=== PATIENT | female | born 1975 | race Caucasian/White ===

== ENCOUNTER 2019-04-11 19:46 | Emergency (ER) | payer SELFPAY ==
[2019-04-11 19:56] VITALS: BP 168/103; PULSE 110; RESP 15; TEMP 36.3; O2SAT 96; BMI 13.7
--- NOTE | 2019-04-11 19:59 | DI.RAD.S_ITS ---
PROCEDURE: XR WRIST LT MIN 3V INDICATIONS: left wrist pain after fall yesterday TECHNIQUE: 3 views of the wrist were acquired. COMPARISON: None. FINDINGS: Bones: No fractures or dislocations. No suspicious bony lesions. Soft tissues: No suspicious soft tissue calcifications. IMPRESSION: No evidence acute bony abnormality of the left wrist. If clinical suspicion and/or symptoms persist, further assessment with repeat plain films, or advanced imaging (e.g., CT, MRI, or bone scan) may be helpful for further assessment. Dictated by: Rc Peraza M.D. on 04/11/2019 at 20:46 Approved by: Rc Peraza M.D. on 04/11/2019 at 20:46
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
[2019-04-11 21:25] VITALS: BP 150/99; PULSE 68; O2SAT 100
== END 2019-04-11 21:26 | disposition home or self-care (01) ==
PROVIDERS: Emergency Provider Nurse Practitioner; Family Provider Family Medicine; PCP Family Medicine
DX: S63.502A Unspecified sprain of left wrist, initial encounter (principal); S66.912A Strain of unspecified muscle, fascia and tendon at wrist and hand level, left hand, initial encounter; W19.XXXA Unspecified fall, initial encounter
CPT/HCPCS: 73110; 99283

== ENCOUNTER 2020-04-24 07:04 | Emergency (ER) | payer OTHER, MEDICAID, SELFPAY ==
[2020-04-24 07:14] VITALS: BP 157/115; PULSE 110; RESP 22; TEMP 36.4; O2SAT 96; BMI 13.7
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
[2020-04-24 07:45] LABS: Add Manual Diff / Slide Review NO; Basophils Absolute Auto 100 /uL (0-100); Basophils Percent Auto 0.9 % (0-2); Eosinophils Absolute Auto 100 /uL (0-450); Eosinophils Percent Auto 1.3 % (2-4); Hematocrit 45.4 % (36-46); Hemoglobin 15.5 g/dL (12.0-16.0); Lymphocytes Absolute Auto 2600 /uL (1100-4500); Lymphocytes Percent Auto 32.6 % (25-40); Mean Corpuscular HGB Conc 34.3 % (30-36); Mean Corpuscular Hemoglobin 37.7 PG (26-34); Mean Corpuscular Volume 110.1 fL (80-100); Monocytes Absolute Auto 1000 /uL (0-900); Monocytes Percent Auto 12.8 % (3-14); Neutrophils Absolute Auto 4100 /uL (1500-7000); Neutrophils Percent Auto 52.4 % (50-75); Platelet Count 145 X10^3/uL (150-400); Red Blood Cell Count 4.12 X10^6/uL (4.0-5.2); Red Cell Distribution Width 13.2 % (11.6-14.8); White Blood Cell Count 7.9 X10^3/uL (4.5-11.0)
[2020-04-24 07:49] LABS: Alanine Aminotransferase 30 IU/L (<35); Albumin 4.7 g/dL (3.5-5.0); Albumin Globulin Ratio 1.4 (1.0-2.8); Alkaline Phosphatase 74 U/L (38-126); Aspartate Aminotransferase 77 IU/L (14-36); BUN Creatinine Ratio 11.1 (6-22); Bilirubin Total 0.3 mg/dL (0.2-1.3); Blood Urea Nitrogen 5 mg/dL (7-17); Calcium 9.5 mg/dL (8.4-10.2); Carbon Dioxide 29 mmol/L (22-32); Chloride 104 mmol/L (98-107); Estimated Glomerular Filt Rate > 60.0 mL/min (>60); Globulin 3.3 g/dL (1.7-4.1); Glucose 127 mg/dL (70-100); HEMOLYSIS 15 (0-50); Potassium 3.7 mmol/L (3.4-5.1); Sodium 142 mmol/L (137-145)
[2020-04-24 07:55] LABS: Bacteria Urine None Seen; RBC Urine None Seen (0-5/HPF); WBC Urine None Seen (0-5/HPF)
[2020-04-24] MEDS: KETOROLAC 60 MG/2 ML VIAL 30 MG IM (08:05)
[2020-04-24 08:06] LABS: Appearance Urine UA CLEAR; Bilirubin Urine UA NEGATIVE (NEGATIVE); Color Urine UA YELLOW; Glucose Urine UA TRACE g/dL (Negative); Ketones Urine UA NEGATIVE (NEGATIVE); Leukocyte Esterase Urine UA NEGATIVE (NEGATIVE); Nitrite Urine UA NEGATIVE (Negative); Occult Blood Urine UA NEGATIVE (Negative); Protein Urine UA NEGATIVE (Negative); Specific Gravity Urine UA <=1.005 (1.000-1.035); Urobilinogen Urine UA 0.2 E.U./dL (0.2)
[2020-04-24 08:11] LABS: Culture Indicated Urine Cult Not Indicated; Squamous Epithelial Cell Urine 0-1 /HPF (0-5/HPF); Urine Comments Microscopic Normal; pH Urine UA 6.5 (4.5-8.0)
[2020-04-24 09:00] LABS: Anisocytosis 1+; Macrocytosis 2+
[2020-04-26 01:36] LABS: Chlamydia trachomatis NAA Negative (Negative); Neisseria gonorrhoeae NAA Negative (Negative)
== END 2020-04-24 08:36 | disposition home or self-care (01) ==
PROVIDERS: Emergency Provider Emergency Medicine
DX: R10.2 Pelvic and perineal pain (principal); N76.0 Acute vaginitis; Z97.5 Presence of (intrauterine) contraceptive device
CPT/HCPCS: 72170; 80053; 81001; 81025; 85025; 87210; 87491; 87591; 96372; 99281; 99284; J1885

== ENCOUNTER → 2020-12-07 11:23 | Outpatient (CLI) | payer OTHER, MEDICAID, SELFPAY ==
[2020-12-07 13:00] LABS: Hemoglobin A1C% w Est Avg Glu 4.6 % (4.0-6.0)
[2020-12-07 13:01] LABS: Add Manual Diff / Slide Review NO; Basophils Absolute Auto 0 /uL (0-100); Basophils Percent Auto 0.5 % (0-2); Eosinophils Absolute Auto 100 /uL (0-450); Eosinophils Percent Auto 1.4 % (2-4); Hematocrit 43.8 % (36-46); Hemoglobin 14.5 g/dL (12.0-16.0); Lymphocytes Absolute Auto 2100 /uL (1100-4500); Lymphocytes Percent Auto 40.8 % (25-40); Mean Corpuscular HGB Conc 33.1 % (30-36); Mean Corpuscular Hemoglobin 37.6 PG (26-34); Mean Corpuscular Volume 113.5 fL (80-100); Monocytes Absolute Auto 800 /uL (0-900); Monocytes Percent Auto 16.4 % (3-14); Neutrophils Absolute Auto 2100 /uL (1500-7000); Neutrophils Percent Auto 40.9 % (50-75); Platelet Count 242 X10^3/uL (150-400); Red Blood Cell Count 3.85 X10^6/uL (4.0-5.2); Red Cell Distribution Width 12.4 % (11.6-14.8); White Blood Cell Count 5.2 X10^3/uL (4.5-11.0)
[2020-12-07 13:19] LABS: Alanine Aminotransferase 28 IU/L (<35); Albumin 4.4 g/dL (3.5-5.0); Albumin Globulin Ratio 1.5 (1.0-2.8); Alkaline Phosphatase 66 U/L (38-126); Amylase 66 U/L (30-110); Aspartate Aminotransferase 60 IU/L (14-36); BUN Creatinine Ratio 10.9 (6-22); Bilirubin Total 0.3 mg/dL (0.2-1.3); Blood Urea Nitrogen 5 mg/dL (7-17); Calcium 9.6 mg/dL (8.4-10.2); Carbon Dioxide 34 mmol/L (22-32); Chloride 98 mmol/L (98-107); Cholesterol 173 mg/dL (140-199); Estimated Glomerular Filt Rate > 60.0 mL/min (>60); Glucose 101 mg/dL (70-100); HEMOLYSIS < 15 (0-50); Lipase 158 U/L (23-300); Potassium 4.2 mmol/L (3.4-5.1); Sodium 141 mmol/L (137-145); Total Protein 7.4 g/dL (6.3-8.2); Triglycerides 83 mg/dL (35-150)
[2020-12-07 13:26] LABS: Macrocytosis 3+
[2020-12-07 13:28] LABS: HDL Cholesterol 121 mg/dL (40-60); LDL Cholesterol Calculated 35 mg/dL (<100)
[2020-12-07 13:40] LABS: TSH w/ Reflex to FT4 1.18 uIU/mL (0.47-4.68)
[2020-12-07 14:19] LABS: Vitamin B12 518 pg/mL (239-931)
== END ==
PROVIDERS: PCP Registered Nurse Diabetes Educator; Referring Provider Registered Nurse Diabetes Educator; Visit Provider Registered Nurse Diabetes Educator
DX: D75.89 Other specified diseases of blood and blood-forming organs (principal); Q45.3 Other congenital malformations of pancreas and pancreatic duct; R73.9 Hyperglycemia, unspecified; R79.89 Other specified abnormal findings of blood chemistry
CPT/HCPCS: 36415; 80053; 80061; 82150; 82607; 82746; 83036; 83690; 84443; 85025

== ENCOUNTER 2020-12-16 09:37 | Emergency (ER) | payer OTHER, MEDICAID, SELFPAY ==
[2020-12-16 09:45] VITALS: BP 115/74; PULSE 78; RESP 14; TEMP 36.9; O2SAT 98; BMI 15.1
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
== END 2020-12-16 10:30 | disposition home or self-care (01) ==
PROVIDERS: Emergency Provider Emergency Medicine; PCP Registered Nurse Diabetes Educator
DX: S40.021A Contusion of right upper arm, initial encounter (principal); X58.XXXA Exposure to other specified factors, initial encounter
CPT/HCPCS: 99281

== ENCOUNTER 2021-05-08 04:54 | Emergency (ER) | payer OTHER, MEDICAID, SELFPAY ==
[2021-05-08 05:04] VITALS: BP 145/101; PULSE 105; RESP 20; TEMP 36.3; O2SAT 95; BMI 15.9
--- NOTE | 2021-05-08 05:04 | ED.GENADULT ---
HPI - General Adult General Chief complaint: Upper Respiratory Symptoms Stated complaint: SOB, bodyaches, weakness thinks maybe covid Time Seen by Provider: 05/08/21 04:58 Source: patient Mode of arrival: Ambulatory Limitations: no limitations History of Present Illness HPI narrative: Patient is a 46-year-old female who is here for evaluation of approximately 1 week of cough and shortness of breath and body aches and nausea and diarrhea and abdominal pain. She states she has similar symptoms approximately 1 month ago with who went away on their own. Has not tried anything for the symptoms. She is concerned that maybe she has COVID. Related Data Home Medications Medication Instructions Recorded Confirmed copper 380 square mm intrauterine INTRAUTERINE 09/27/20 09/27/20 device (ParaGard T 380A) Allergies Allergy/AdvReac Type Severity Reaction Status Date / Time No Known Drug Allergies Allergy Verified 12/16/20 09:49 Review of Systems Constitutional Constitutional: Reports body ache(s) and Reports fatigue Cardiovascular Cardiovascular: Denies chest pain and Reports dyspnea Respiratory Respiratory: Reports cough and Reports dyspnea Gastrointestinal Gastrointestinal: Reports as per HPI and Reports system reviewed and no additional complaints, except as documented Genitourinary Genitourinary: Denies dysuria Musculoskeletal Musculoskeletal: Reports system reviewed and no additional complaints, except as documented Integumentary/Breasts Skin/Breast: Reports system reviewed and no additional complaints, except as documented Endocrine Endocrine: Reports fatigue Hematologic/Lymphatic On Anticoagulants: No Patient History Medical History Chicken pox Current smoker Excessive drinking of alcohol Marijuana smoker Surgical History Anesthesia History of surgery Status post hernia repair Status post loop electrosurgical excision procedure (LEEP) of cervix Family History Mother Seizures Grandmother Stroke Social History Smoking Status: Current every day smoker Tobacco: How many years used: 27 quit status: not considering quitting alcohol intake: current (2-24oz per day ) substance use type: marijuana (Daily ) Smoking Status: Current every day smoker alcohol intake frequency: 3 or more drinks per day Alcohol type: beer, wine and hard liquor Substance Use Type: marijuana Exam Initial Vital Signs Initial Vital Signs: Vital Signs Temperature 97.3 F L 05/08/21 05:04 Pulse Rate 105 H 05/08/21 05:04 Respiratory Rate 20 05/08/21 05:04 Blood Pressure 145/101 H 05/08/21 05:04 Pulse Oximetry 95 05/08/21 05:04 Const General: cooperative Resp Effort & Inspection: normal respiratory effort Auscultation: clear to auscultation bilaterally Cardio Rate: regular rate Rhythm: regular rhythm GI Inspection: normal to inspection Palpation: soft, No guarding and No tender Skin General: no rashes or lesions noted Neuro General: patient alert, patient awake and moves all extremities Extrem General: normal to inspection and capillary refill normal Psych Appearance: grossly normal and well kempt Course Orders Ordered: ED Orders 05/08/21 05:00 COVID19 -Nasal swab/Pre-Proc Stat 05/08/21 05:10 Complete Blood Count AUTO DIFF Stat Comprehensive Metabolic Panel Stat Lipase Stat Test Serum,Qual Stat Vital Signs Vital signs: Vital Signs - 8 hr 05/08/21 05:04 Temperature 97.3 F L Pulse Rate 105 H Respiratory Rate 20 Blood Pressure 145/101 H Pulse Oximetry 95 Medical Decision Making Lab Data Lab results reviewed: Yes I reviewed the patient's lab results. Result diagrams: 05/08/21 05:10 05/08/21 05:10 Labs: Lab Results 05/08/21 05/08/21 05/08/21 Range/Units 05:00 05:10 05:10 WBC 6.4 (4.5-11.0) X10^3/uL RBC 4.19 (4.0-5.2) X10^6/uL Hgb 15.5 (12.0-16.0) g/dL Hct 45.5 (36-46) % MCV 108.6 H (80-100) fL MCH 37.0 H (26-34) PG MCHC 34.1 (30-36) % RDW 12.6 (11.6-14.8) % Plt Count 208 (150-400) X10^3/uL Neut % (Auto) 32.6 L (50-75) % Lymph % (Auto) 57.5 H (25-40) % [place] % (Auto) 7.9 (3-14) % Eos % (Auto) 1.3 L (2-4) % Baso % (Auto) 0.7 (0-2) % Neut # (Auto) 2100 (2099-6821) /uL Lymph # (Auto) 3700 (6389-2681) /uL [place] # (Auto) 500 (0-900) /uL Eos # (Auto) 100 (0-450) /uL Baso # (Auto) 0 (0-100) /uL Sodium 144 (137-145) mmol/L Potassium 3.8 (3.4-5.1) mmol/L Chloride 104 (98-107) mmol/L Carbon Dioxide 31 (22-32) mmol/L BUN 4 L (7-17) mg/dL Creatinine 0.49 L (0.52-1.04) mg/dL Estimated GFR > 60.0 (>60) mL/min BUN/Creatinine Ratio 8.2 (6-22) Glucose 100 (70-100) mg/dL Calcium 8.6 (8.4-10.2) mg/dL Total Bilirubin 0.3 (0.2-1.3) mg/dL AST 51 H (14-36) IU/L ALT 19 (<35) IU/L Alkaline Phosphatase 87 (38-126) U/L Total Protein 8.1 (6.3-8.2) g/dL Albumin 4.3 (3.5-5.0) g/dL Globulin 3.8 (1.7-4.1) g/dL Albumin/Globulin Ratio 1.1 (1.0-2.8) Lipase 184 (23-300) U/L Serum , Qual (Negative) SARS-CoV-2 (PCR) Negative (Negative) 05/08/21 Range/Units 05:10 WBC (4.5-11.0) X10^3/uL RBC (4.0-5.2) X10^6/uL Hgb (12.0-16.0) g/dL Hct (36-46) % MCV (80-100) fL MCH (26-34) PG MCHC (30-36) % RDW (11.6-14.8) % Plt Count (150-400) X10^3/uL Neut % (Auto) (50-75) % Lymph % (Auto) (25-40) % [place] % (Auto) (3-14) % Eos % (Auto) (2-4) % Baso % (Auto) (0-2) % Neut # (Auto) (0591-9972) /uL Lymph # (Auto) (8102-0393) /uL [place] # (Auto) (0-900) /uL Eos # (Auto) (0-450) /uL Baso # (Auto) (0-100) /uL Sodium (137-145) mmol/L Potassium (3.4-5.1) mmol/L Chloride (98-107) mmol/L Carbon Dioxide (22-32) mmol/L BUN (7-17) mg/dL Creatinine (0.52-1.04) mg/dL Estimated GFR (>60) mL/min BUN/Creatinine Ratio (6-22) Glucose (70-100) mg/dL Calcium (8.4-10.2) mg/dL Total Bilirubin (0.2-1.3) mg/dL AST (14-36) IU/L ALT (<35) IU/L Alkaline Phosphatase (38-126) U/L Total Protein (6.3-8.2) g/dL Albumin (3.5-5.0) g/dL Globulin (1.7-4.1) g/dL Albumin/Globulin Ratio (1.0-2.8) Lipase (23-300) U/L Serum , Qual Negative (Negative) SARS-CoV-2 (PCR) (Negative) MDM Narrative Medical decision making narrative: Labs are unremarkable to include COVID-19. Patient not having urinary symptoms. Has multiple complaints. No source of infection found. No indication for antibiotics. Patient was informed of lab findings. She was given return precautions. Expressed understanding and agreement. Discharge Plan Departure Patient Disposition: Home Clinical Impression: Body aches Activity Restrictions/Additional Instructions: Your COVID test today was negative. The rest of your labs were very reassuring. There is no indication to do any antibiotics. You can take Tylenol or ibuprofen for any discomfort. Contact your primary doctor for follow-up. Prescriptions: No Action ParaGard T 380A 380 square mm intrauterine device intrauterine 0RF Referrals: Kyle Diaz ARNP [Primary Care Provider] -
[2021-05-08 05:21] LABS: COVID19 -Nasal RAPID Negative (Negative)
[2021-05-08 05:27] LABS: Add Manual Diff / Slide Review NO; Alanine Aminotransferase 19 IU/L (<35); Albumin 4.3 g/dL (3.5-5.0); Albumin Globulin Ratio 1.1 (1.0-2.8); Alkaline Phosphatase 87 U/L (38-126); Aspartate Aminotransferase 51 IU/L (14-36); BUN Creatinine Ratio 8.2 (6-22); Basophils Absolute Auto 0 /uL (0-100); Basophils Percent Auto 0.7 % (0-2); Bilirubin Total 0.3 mg/dL (0.2-1.3); Blood Urea Nitrogen 4 mg/dL (7-17); Calcium 8.6 mg/dL (8.4-10.2); Carbon Dioxide 31 mmol/L (22-32); Chloride 104 mmol/L (98-107); Eosinophils Absolute Auto 100 /uL (0-450); Eosinophils Percent Auto 1.3 % (2-4); Estimated Glomerular Filt Rate > 60.0 mL/min (>60); Globulin 3.8 g/dL (1.7-4.1); Glucose 100 mg/dL (70-100); HEMOLYSIS < 15 (0-50); Hematocrit 45.5 % (36-46); Hemoglobin 15.5 g/dL (12.0-16.0); Lipase 184 U/L (23-300); Lymphocytes Absolute Auto 3700 /uL (1100-4500); Lymphocytes Percent Auto 57.5 % (25-40); Mean Corpuscular HGB Conc 34.1 % (30-36); Mean Corpuscular Volume 108.6 fL (80-100); Monocytes Absolute Auto 500 /uL (0-900); Monocytes Percent Auto 7.9 % (3-14); Neutrophils Absolute Auto 2100 /uL (1500-7000); Neutrophils Percent Auto 32.6 % (50-75); Platelet Count 208 X10^3/uL (150-400); Potassium 3.8 mmol/L (3.4-5.1); Red Blood Cell Count 4.19 X10^6/uL (4.0-5.2); Red Cell Distribution Width 12.6 % (11.6-14.8); Sodium 144 mmol/L (137-145); Total Protein 8.1 g/dL (6.3-8.2); White Blood Cell Count 6.4 X10^3/uL (4.5-11.0)
[2021-05-08 05:31] LABS: Pregnancy Test Serum,Qual Negative (Negative)
[2021-05-08 05:41] VITALS: BP 155/100; PULSE 87; O2SAT 94
== END 2021-05-08 05:49 | disposition home or self-care (01) ==
PROVIDERS: Emergency Provider Emergency Medicine; PCP Registered Nurse Diabetes Educator
DX: R52 Pain, unspecified (principal); F17.200 Nicotine dependence, unspecified, uncomplicated; Z20.822 Contact with and (suspected) exposure to COVID-19
CPT/HCPCS: 36415; 80053; 83690; 84703; 85025; 87635; 99283; 99284; C9803

== ENCOUNTER 2022-03-15 19:30 | Emergency (ER) | payer OTHER, MEDICAID, SELFPAY ==
[2022-03-15] VITALS (10 sets, daily range): BP systolic 70–118; BP diastolic 43–81; PULSE 69–86; RESP 20; TEMP 36.3; O2SAT 93–97; BMI 13.9
[2022-03-15 20:39] LABS: RBC Urine None Seen (0-5/HPF); Squamous Epithelial Cell Urine 1-5 /HPF (0-5/HPF); Transitional Epi Cells Urine 1-5/HPF (0-5/HPF); WBC Urine 1-5/HPF (0-5/HPF)
[2022-03-15 20:40] LABS: Bacteria Urine None Seen; Culture Indicated Urine Cult Not Indicated; Hyaline Casts Urine 5-10/LPF
[2022-03-15 21:23] LABS: Pregnancy Test Urine Negative (Negative)
--- NOTE | 2022-03-15 22:06 | ED_ITS ---
HPI - Abdominal Pain General Chief Complaint: Abdominal Pain Stated Complaint: thinks IUD has moved Time Seen by Provider: 03/15/22 21:10 Source: patient Mode of arrival: Ambulatory Limitations: no limitations History of Present Illness HPI narrative: This is a 47-year-old male with history of alcohol abuse, tobacco use who presents with concern for lower pelvic pain she states it has been cramping for the past several months sort of comes and goes it has been more persistent recently. She denies fevers or chills, no nausea or vomiting, she states she has chronic back pain but no new back or flank pain that she appreciates related to her lower pelvic pain. She denies dysuria, urgency or frequency. She denies any vaginal bleeding, she states she is an IUD in place or is supposed to but she can not feel the strings and is concerned that might have moved more been lost. Patient is sexually active. She states she was having diarrhea for about 2 weeks then became constipated she did have a bowel movement in the last which he states was very liquidy with a large amount. No black or blood. Patient d enies any prior surgeries, she states she smokes daily, she drinks 3-4 alcoholic drinks daily which can be beer, wine or hard liquor. She uses marijuana but denies any other illicit drugs. Related Data Home Medications Medication Instructions Recorded Confirmed copper 380 square mm intrauterine intrauterine 09/27/20 09/27/20 device (ParaGard T 380A) Previous Rx's Medication Instructions Recorded prednisone 10 mg tablets in a dose See Rx Instructions PO .COMPLEX 03/15/22 pack #21 ea Allergies Allergy/AdvReac Type Severity Reaction Status Date / Time No Known Drug Allergies Allergy Verified 03/15/22 19:52 Review of Systems Review of Systems ROS Unobtainable: All systems reviewed & are unremarkable except as noted in HPI and below Patient History Medical History Chicken pox Current smoker Excessive drinking of alcohol Marijuana smoker Surgical History Anesthesia History of surgery Status post hernia repair Status post loop electrosurgical excision procedure (LEEP) of cervix Family History Mother Seizures Grandmother Stroke Social History Smoking Status: Current every day smoker Tobacco: How many years used: 27 quit status: not considering quitting alcohol intake: current (2-24oz per day ) substance use type: marijuana (Daily ) Smoking Status: Current every day smoker alcohol intake frequency: 3 or more drinks per day Alcohol type: beer, wine and hard liquor Substance Use Type: marijuana Exam Narrative Exam Narrative: GENERAL: Alert and oriented x three, female mild distress. HEENT: Head normocephalic, atraumatic, EOMI, pupils reactive, face symmetric, moist mucous membranes NECK: Supple, full range of motion CARDIOVASCULAR: Regular rate and rhythm without murmurs, rubs or gallops. RESPIRATORY: Breath sounds equal bilaterally, no wheezes rales or rhonchi. ABDOMEN: Soft, positive for right lower quadrant tenderness. Normoactive bowel sounds all 4 quadrants. No guarding or rebound, rigidity, no mass, nondistended. : No CVA tenderness. Female: external vaginal exam is normal, no vaginal bleeding, no discharge, no cervical motion tenderness, normal speculum exam, patient IUD does appear to be in place, strings are present, no adnexal tenderness/mass. Bimanual exam is normal, no enlarged or tender uterus. Non- gravid. EXTREMITIES: Normal range of motion, no clubbing or edema. Neurovascularly intact NEUROLOGICAL: Cranial nerves II through XII grossly intact. Moving all extremities SKIN: Warm, dry, no petechiae, no rashes or lesions. Initial Vital Signs Initial Vital Signs: Vital Signs Temperature 97.3 F L 03/15/22 19:38 Pulse Rate 80 03/15/22 19:38 Respiratory Rate 20 03/15/22 19:38 Blood Pressure 111/81 03/15/22 19:38 Pulse Oximetry 96 03/15/22 19:38 Oxygen Delivery Method 03/15/22 19:38 Course Orders Ordered: ED Orders 03/15/22 20:23 Test Urine Stat Urine Microscopic Stat 03/15/22 22:41 CT abdomen pelvis w con Stat 03/15/22 22:49 CBC Auto Diff [Complete Blood Count AUTO DIFF] Stat CMP [Comprehensive Metabolic Panel] Stat Lipase Stat Discontinued Medications Acetaminophen (Acetaminophen 325 Mg Tablet) 975 mg PO NOW ONE Stop: 03/15/22 22:45 Last Admin: 03/15/22 23:10 Dose: 975 mg Documented By: JOEL Sodium Chloride (Normal Saline 0.9%) 1,000 mls @ 1,000 mls/hr IV BOLUS ONE Stop: 03/15/22 23:30 Last Admin: 03/15/22 23:10 Dose: 1,000 mls/hr Documented By: JOEL Vital Signs Vital signs: Vital Signs - 8 hr 03/15/22 19:38 03/15/22 20:35 03/15/22 20:36 Temperature 97.3 F L Pulse Rate 80 81 Respiratory Rate 20 Blood Pressure 111/81 118/76 Pulse Oximetry 96 97 Oxygen Delivery Method Room Air Room Air 03/15/22 20:36 03/15/22 21:00 03/15/22 21:00 Temperature Pulse Rate 75 69 Respiratory Rate Blood Pressure 91/59 L Pulse Oximetry 97 93 Oxygen Delivery Method Room Air 03/15/22 21:30 03/15/22 21:30 03/15/22 21:32 Temperature Pulse Rate 75 Respiratory Rate Blood Pressure 84/52 L 91/52 L Pulse Oximetry Oxygen Delivery Method 03/15/22 21:32 03/15/22 22:00 03/15/22 22:00 Temperature Pulse Rate 82 75 Respiratory Rate Blood Pressure 70/43 L Pulse Oximetry 96 93 Oxygen Delivery Method Room Air 03/15/22 22:01 03/15/22 22:01 03/15/22 22:02 Temperature Pulse Rate 77 Respiratory Rate Blood Pressure 71/45 L 87/60 L Pulse Oximetry 95 Oxygen Delivery Method 03/15/22 22:02 03/15/22 22:30 03/15/22 22:30 Temperature Pulse Rate 71 86 Respiratory Rate Blood Pressure 103/74 Pulse Oximetry 97 96 Oxygen Delivery Method Room Air 03/16/22 00:07 Temperature Pulse Rate 82 Respiratory Rate 18 Blood Pressure 105/75 Pulse Oximetry 97 Oxygen Delivery Method Room Air MDM - Abdominal Pain Lab Data Result diagrams: 03/15/22 22:49 03/15/22 22:49 Labs: Lab Results 03/15/22 03/15/22 03/15/22 Range/Units 20:23 20:23 22:49 WBC 6.6 (4.5-11.0) X10^3/uL RBC 3.77 L (4.0-5.2) X10^6/uL Hgb 14.2 (12.0-16.0) g/dL Hct 41.5 (36-46) % MCV 110.2 H (80-100) fL MCH 37.7 H (26-34) PG MCHC 34.2 (30-36) % RDW 12.9 (11.6-14.8) % Plt Count 155 (150-400) X10^3/uL Neut % (Auto) 45.2 L (50-75) % Lymph % (Auto) 46.7 H (25-40) % [place] % (Auto) 6.0 (3-14) % Eos % (Auto) 1.4 L (2-4) % Baso % (Auto) 0.7 (0-2) % Neut # (Auto) 3000 (1145-9389) /uL Lymph # (Auto) 3100 (7940-1448) /uL [place] # (Auto) 400 (0-900) /uL Eos # (Auto) 100 (0-450) /uL Baso # (Auto) 0 (0-100) /uL RBC Morphology See below Macrocytosis 2+ H Sodium (137-145) mmol/L Potassium (3.4-5.1) mmol/L Chloride (98-107) mmol/L Carbon Dioxide (22-32) mmol/L BUN (7-17) mg/dL Creatinine (0.52-1.04) mg/dL Estimated GFR (>60) mL/min BUN/Creatinine Ratio (6-22) Glucose (70-100) mg/dL Calcium (8.4-10.2) mg/dL Total Bilirubin (0.2-1.3) mg/dL AST (14-36) IU/L ALT (<35) IU/L Alkaline Phosphatase (38-126) U/L Total Protein (6.3-8.2) g/dL Albumin (3.5-5.0) g/dL Globulin (1.7-4.1) g/dL Albumin/Globulin Ratio (1.0-2.8) Lipase (23-300) U/L Urine RBC None seen (0-5/HPF) Urine WBC 1-5/hpf (0-5/HPF) Ur Squamous Epith Cells 1-5 /hpf (0-5/HPF) Ur Transition Epith Cell 1-5/hpf (0-5/HPF) Urine Bacteria None seen (None) Hyaline Casts 5-10/lpf (None) Ur Culture Indicated? Cult not indicated Urine Test Negative (Negative) 03/15/22 Range/Units 22:49 WBC (4.5-11.0) X10^3/uL RBC (4.0-5.2) X10^6/uL Hgb (12.0-16.0) g/dL Hct (36-46) % MCV (80-100) fL MCH (26-34) PG MCHC (30-36) % RDW (11.6-14.8) % Plt Count (150-400) X10^3/uL Neut % (Auto) (50-75) % Lymph % (Auto) (25-40) % [place] % (Auto) (3-14) % Eos % (Auto) (2-4) % Baso % (Auto) (0-2) % Neut # (Auto) (6344-6457) /uL Lymph # (Auto) (9498-1228) /uL [place] # (Auto) (0-900) /uL Eos # (Auto) (0-450) /uL Baso # (Auto) (0-100) /uL RBC Morphology Macrocytosis Sodium 143 (137-145) mmol/L Potassium 3.5 (3.4-5.1) mmol/L Chloride 103 (98-107) mmol/L Carbon Dioxide 28 (22-32) mmol/L BUN 3 L (7-17) mg/dL Creatinine 0.53 (0.52-1.04) mg/dL Estimated GFR > 60 (>60) mL/min BUN/Creatinine Ratio 5.7 L (6-22) Glucose 88 (70-100) mg/dL Calcium 7.9 L (8.4-10.2) mg/dL Total Bilirubin 0.4 (0.2-1.3) mg/dL AST 65 H (14-36) IU/L ALT 22 (<35) IU/L Alkaline Phosphatase 148 H (38-126) U/L Total Protein 7.0 (6.3-8.2) g/dL Albumin 3.1 L (3.5-5.0) g/dL Globulin 3.9 (1.7-4.1) g/dL Albumin/Globulin Ratio 0.8 L (1.0-2.8) Lipase 99 (23-300) U/L Urine RBC (0-5/HPF) Urine WBC (0-5/HPF) Ur Squamous Epith Cells (0-5/HPF) Ur Transition Epith Cell (0-5/HPF) Urine Bacteria (None) Hyaline Casts (None) Ur Culture Indicated? Urine Test (Negative) Point of care testing: Urine Dip Bedside Urine Glucose Negative Bedside Urine Bilirubin - Negative Bedside Urine Ketone - Negative Urine Specific [place] 1.015 Bedside Urine Occult Blood - Negative Bedside Urine pH 6.0 Bedside Urine Protein + 30 Bedside Urine Urobilinogen +/- 1mg Bedside Urine Nitrite - Negative Bedside Urine Leukocytes - Negative Esterase Imaging Data CT scan - abdomen/pelvis: Radiologist's Impression: No evidence appendicitis, mild segmental colonic wall thickening with ascending transverse and descending colon suggestive of mild infectious or inflammatory colitis. Mild superior endplate compression deformity of the T11 vertebral body with an associated Schmorl's node of indeterminate acuity. No suspicious focal lesions. IUD which appears to extend into the fundal endometrium. MDM Narrative Medical decision making narrative: This is a 47-year-old with tobacco and alcohol abuse with discrete right lower quadrant tenderness on exam. Pelvic exam was performed as patient was concerned her IUD may no longer be present, IUD appeared to be place strings are present. Patient does not have any discharge and is nontender on exam and cervix is nontender making PID less likely. Labs, IV, fluids and CT to evaluate for right lower quadrant pain were ordered. Patient appears to have some thickening of the colon possibly colitis, labs do not show clear infectious source my suspicion is more for inflammatory. Plan for short course of steroids to see if this is helpful for patient do recommend to the patient that she have colonoscopy for further evaluation. Reviewed all patient's findings, return precautions all questions answered. Patient feels much more comfortable she states her pain has resolved. Blood pressure was low during her stay in the department improve mildly with fluids but patient is otherwise asymptomatic. Discharge Plan Departure Patient Disposition: Home Clinical Impression: Colitis Instructions: DI for Colitis Activity Restrictions/Additional Instructions: Please follow-up for recheck if your symptoms are persisting. You do appear to have a mild colitis on your CT imaging. This may respond to steroids and I would try a short course to see if that is helpful. I recommend that you should follow-up to have a colonoscopy, referral is included below. Please call to set up an appointment. You can take Tylenol up to a 1000 mg every 6 hours as needed for pain and/or ibuprofen up to 600 mg every 6 hours. Prescription for prednisone sent to [facility] in [place]. I would recommend taking this medication with food. Please return for fevers, new or worsening abdominal pain, persistent vomiting, black or bloody stools, new vaginal bleeding or other new or concerning changes. Prescriptions: New prednisone 10 mg tablets,dose pack See Rx Instructions .ROUTE .COMPLEX Qty: 21 0RF Rx Instructions: orally per package directions No Action ParaGard T 380A 380 square mm intrauterine device intrauterine Referrals: Brenda Tolentino MD [Physician] - Kyle Diaz ARNP [Primary Care Provider] - Stand Alone Forms: Patient Portal/API
--- NOTE | 2022-03-15 22:08 | PC.NURSE ---
Patient's blood pressure 71/45 and then 87/[address] Amador notified at 2205. Pt is asymptomatic.
--- NOTE | 2022-03-15 22:41 | DI.CT.S_ITS ---
PROCEDURE: CT ABDOMEN PELVIS W CON INDICATIONS: RLQ pain, IUD appears in place. TECHNIQUE: After the administration of oral and IV contrast, axial sections were acquired from the lung bases to the pubic symphysis. Coronal and sagittal reformats were performed. For radiation dose reduction, the following was used: automated exposure control, adjustment of mA and/or kV according to patient size. COMPARISON: None. FINDINGS: Image quality: Excellent. Lung bases: Unremarkable. Heart: Heart is normal in size. There is mild wall thickening of the visualized distal esophagus. ABDOMEN: Liver: No mass lesion. Gallbladder: Within normal limits without calcified gallstones. Biliary ducts: No biliary ductal dilatation. Pancreas: Unremarkable. Spleen: Normal in size. Adrenal Glands: No adrenal nodules. Kidneys and Ureters: No hydronephrosis. Stomach and Bowel: Stomach and small bowel loops are normal in caliber and wall thickness. The appendix is normal in appearance. There is mild segmental wall thickening involving the ascending, transverse, and descending colon with associated minimal fat stranding. Peritoneum: No abnormal intraperitoneal fluid. No free air. Ventral Wall: No hernia. Abdominal Nodes: No retroperitoneal or mesenteric adenopathy by size criteria. Vessels: Aorta and inferior vena cava are normal in size. PELVIS: Pelvic Organs: There is an IUD which appears to extend into the fundal endometrium. Bladder: Unremarkable. Pelvic Nodes: No enlarged lymph nodes. Miscellaneous: No inguinal hernias are seen. Bones: There is a mild superior endplate compression deformity of the T11 vertebral body with an associated Schmorl's node of indeterminate acuity. Visualized osseous structures demonstrate no suspicious focal lesions. IMPRESSION: 1. No evidence of appendicitis. 2. Mild segmental colonic wall thickening within the ascending, transverse, and descending colon suggestive of a mild infectious or inflammatory colitis. Dictated by: Elton Lemos M.D. on 03/15/2022 at 23:17 Approved by: Elton Lemos M.D. on 03/15/2022 at 23:26
[2022-03-15 23:08] LABS: Basophils Absolute Auto 0 /uL (0-100); Basophils Percent Auto 0.7 % (0-2); Eosinophils Absolute Auto 100 /uL (0-450); Eosinophils Percent Auto 1.4 % (2-4); Hematocrit 41.5 % (36-46); Hemoglobin 14.2 g/dL (12.0-16.0); Lymphocytes Absolute Auto 3100 /uL (1100-4500); Lymphocytes Percent Auto 46.7 % (25-40); Mean Corpuscular HGB Conc 34.2 % (30-36); Mean Corpuscular Hemoglobin 37.7 PG (26-34); Mean Corpuscular Volume 110.2 fL (80-100); Monocytes Absolute Auto 400 /uL (0-900); Neutrophils Absolute Auto 3000 /uL (1500-7000); Neutrophils Percent Auto 45.2 % (50-75); Platelet Count 155 X10^3/uL (150-400); Red Blood Cell Count 3.77 X10^6/uL (4.0-5.2); Red Cell Distribution Width 12.9 % (11.6-14.8); White Blood Cell Count 6.6 X10^3/uL (4.5-11.0)
[2022-03-15 23:09] LABS: Add Manual Diff / Slide Review SLIDE REVIEW
[2022-03-15] MEDS: SODIUM CHLORIDE 0.9% 1,000 ML 1000 ML IV (23:10)
[2022-03-15] MEDS: ACETAMINOPHEN 325 MG TABLET 975 MG PO (23:10)
[2022-03-15 23:23] LABS: Alanine Aminotransferase 22 IU/L (<35); Albumin 3.1 g/dL (3.5-5.0); Albumin Globulin Ratio 0.8 (1.0-2.8); Alkaline Phosphatase 148 U/L (38-126); Aspartate Aminotransferase 65 IU/L (14-36); BUN Creatinine Ratio 5.7 (6-22); Bilirubin Total 0.4 mg/dL (0.2-1.3); Blood Urea Nitrogen 3 mg/dL (7-17); Calcium 7.9 mg/dL (8.4-10.2); Carbon Dioxide 28 mmol/L (22-32); Chloride 103 mmol/L (98-107); Estimated Glomerular Filt Rate > 60 mL/min (>60); Globulin 3.9 g/dL (1.7-4.1); Glucose 88 mg/dL (70-100); HEMOLYSIS < 15 (0-50); Lipase 99 U/L (23-300); Potassium 3.5 mmol/L (3.4-5.1); Sodium 143 mmol/L (137-145)
[2022-03-16 00:07] VITALS: BP 105/75; PULSE 82; RESP 18; O2SAT 97
[2022-03-16 02:07] LABS: Macrocytosis 2+
== END 2022-03-16 00:08 | disposition home or self-care (01) ==
PROVIDERS: Emergency Provider Emergency Medicine; PCP Registered Nurse Diabetes Educator
DX: K52.9 Noninfective gastroenteritis and colitis, unspecified (principal); R10.31 Right lower quadrant pain
CPT/HCPCS: 36415; 74177; 80053; 81003; 81015; 81025; 83690; 85025; 99284; Q9967

== ENCOUNTER 2023-02-27 16:42 | Emergency (ER) | payer OTHER, MEDICAID, SELFPAY ==
[2023-02-27 16:46] VITALS: BP 117/98; PULSE 84; RESP 22; TEMP 36.4; O2SAT 95; BMI 15.0
--- NOTE | 2023-02-27 16:52 | DI.RAD.S_ITS ---
PROCEDURE: XR HIP W PEL IF DONE LT 2V INDICATIONS: severe hip pain TECHNIQUE: AP pelvis with lateral view(s) of the left hip(s). COMPARISON: [facility], CR, XR PELVIS WITH LATERAL HIP LEFT, 07/31/2022, 10:51. FINDINGS: Bones: No fractures or dislocations. Status post left trochanteric femoral fixation. Pelvic ring appears intact. No suspicious bony lesions. Soft tissues: The visualized bowel gas pattern is normal. No suspicious soft tissue calcifications. IMPRESSION: Postoperative changes of left hip trochanteric femoral fixation. Dictated by: Robles Hodges M.D. on 02/27/2023 at 17:17 Approved by: Robles Hodges M.D. on 02/27/2023 at 17:18
[2023-02-27 18:00] VITALS: BP 161/76; PULSE 81; RESP 27; TEMP 36.8; O2SAT 93
[2023-02-27 18:06] VITALS: PULSE 75
[2023-02-27 18:15] VITALS: BP 148/94; PULSE 78; RESP 20; O2SAT 94
[2023-02-27 18:24] VITALS: PULSE 87; O2SAT 92
[2023-02-27 18:30] VITALS: BP 148/93; PULSE 74; O2SAT 95
--- NOTE | 2023-02-27 18:44 | ED.EXTPRO ---
HPI - Extremity Problem General Chief complaint: Extremity Problem,Nontraumatic Stated complaint: hip pain Time Seen by Provider: 02/27/23 18:00 Source: patient and family Mode of arrival: Ambulatory History of Present Illness HPI Narrative: Patient is a 48-year-old female who is here for evaluation of left hip pain. Patient states she had a total hip done approximately 6 months ago. Several days ago her hip started to hurt again. There was no specific trauma. No back pain. She states that it does hurt for her to move her hip and also to walk. During the interview patient seems to be under the influence of either alcohol or some other illicit substance. She is very short with her answers. Had a difficult time lying still in bed. Related Data Home Medications Medication Instructions Recorded Confirmed copper 380 square mm intrauterine intrauterine 09/27/20 09/27/20 device (ParaGard T 380A) Previous Rx's Medication Instructions Recorded prednisone 10 mg tablets in a dose See Rx Instructions PO .COMPLEX 03/15/22 pack #21 ea ondansetron 4 mg disintegrating 4 mg PO Q6H PRN nausea and 02/27/23 tablet vomiting #10 tabs Allergies Allergy/AdvReac Type Severity Reaction Status Date / Time No Known Drug Allergies Allergy Verified 03/15/22 19:52 Review of Systems Constitutional Constitutional: Reports system reviewed and no additional complaints, except as documented Musculoskeletal Musculoskeletal: Reports system reviewed and no additional complaints, except as documented Integumentary/Breasts Skin/Breast: Reports system reviewed and no additional complaints, except as documented Neurologic Neurologic: Reports system reviewed and no additional complaints, except as documented Patient History Medical History Chicken pox Marijuana smoker Current smoker Excessive drinking of alcohol Surgical History Anesthesia History of surgery Status post hernia repair Status post loop electrosurgical excision procedure (LEEP) of cervix Family History Mother Seizures Grandmother Stroke Social History Smoking Status: Current every day smoker Tobacco: How many years used: 27 quit status: not considering quitting alcohol intake: current (2-24oz per day ) substance use type: marijuana (Daily ) Smoking Status: Current every day smoker tobacco type: cigarettes alcohol intake frequency: 3 or more drinks per day Alcohol type: beer, wine and hard liquor Substance Use Type: marijuana Exam Initial Vital Signs Initial Vital Signs: Vital Signs Temperature 97.6 F 02/27/23 16:46 Pulse Rate 84 02/27/23 16:46 Respiratory Rate 22 02/27/23 16:46 Blood Pressure 117/98 H 02/27/23 16:46 Pulse Oximetry 95 02/27/23 16:46 Oxygen Delivery Method Room Air 02/27/23 16:46 Const Other: Cachectic appearing Skin General: no rashes or lesions noted Neuro General: patient alert, patient awake and moves all extremities Extrem Other: She is discomfort with palpation of the left hip. Left knee and left ankle unremarkable. She does have range of motion of the left hip. Course Orders Ordered: ED Orders 02/27/23 16:52 XR hip w pel if done LT 2V Stat Discontinued Medications Ketorolac Tromethamine (Ketorolac 30 Mg/Ml Vial) 60 mg IM NOW ONE Stop: 02/27/23 18:45 Last Admin: 02/27/23 18:51 Dose: 60 mg Documented By: JOEL Ondansetron HCl (Ondansetron 4 Mg Odt Prepack) 1 bottle MISC DIRECTED ONE Stop: 02/27/23 18:45 Last Admin: 02/27/23 18:51 Dose: 1 bottle Documented By: JOEL Vital Signs Vital signs: Vital Signs - 8 hr 02/27/23 16:46 02/27/23 18:00 02/27/23 18:06 Temperature 97.6 F 98.2 F Pulse Rate 84 81 Pulse Rate [Left Dorsalis Pedis] 75 Respiratory Rate 22 27 H Blood Pressure 117/98 H 161/76 H Pulse Oximetry 95 93 Oxygen Delivery Method Room Air Room Air 02/27/23 18:15 02/27/23 18:24 02/27/23 18:30 Temperature Pulse Rate 78 87 Pulse Rate [Left Dorsalis Pedis] Respiratory Rate 20 Blood Pressure 148/94 H 148/93 H Pulse Oximetry 94 92 Oxygen Delivery Method Room Air 02/27/23 18:30 Temperature Pulse Rate 74 Pulse Rate [Left Dorsalis Pedis] Respiratory Rate Blood Pressure Pulse Oximetry 95 Oxygen Delivery Method MDM - Extremity (Nontraumatic) Imaging Data Extremity x-ray #1: Radiologist's Impression: PROCEDURE: XR HIP W PEL IF DONE LT 2V INDICATIONS: severe hip pain TECHNIQUE: AP pelvis with lateral view(s) of the left hip(s). COMPARISON: [facility], CR, XR PELVIS WITH LATERAL HIP LEFT, 07/31/2022, 10:51. FINDINGS: Bones: No fractures or dislocations. Status post left trochanteric femoral fixation. Pelvic ring appears intact. No suspicious bony lesions. Soft tissues: The visualized bowel gas pattern is normal. No suspicious soft tissue calcifications. IMPRESSION: Postoperative changes of left hip trochanteric femoral fixation MDM Narrative Medical decision making narrative: X-ray of the left hip shows no acute pathology. She has no neurologic symptoms. There are no skin changes over the area concerning for infection. She denies any trauma. I recommend that the patient continue with Tylenol/ibuprofen. Very hesitant to provide any opioid pain medication given how she is acting today as I suspect that she is either under the influence of alcohol or other illicit substance. No indication for admission to the hospital. Will discharge patient home with return precautions. Discharge Plan Departure Patient Disposition: Home Clinical Impression: Hip pain Instructions: How To Perform RICE (Rest, Ice, Compress, Elevate) Activity Restrictions/Additional Instructions: The x-ray today did not show any abnormalities with the hardware that is in your hip. There was no fracture. Recommend that you continue with conservative measures such as heat/ice. You can also take Tylenol and/or ibuprofen. These can be purchased [id number]. Your nausea medication his for use as needed. I have recommend that you call [phone] want to help you establish a primary care provider. Prescriptions: New ondansetron 4 mg tablet,disintegrating 4 mg PO Q6H PRN (Reason: nausea and vomiting) Qty: 10 0RF No Action ParaGard T 380A 380 square mm intrauterine device intrauterine prednisone 10 mg tablets,dose pack See Rx Instructions .ROUTE .COMPLEX Qty: 21 0RF Rx Instructions: orally per package directions Referrals: Kyle Diaz ARNP [Primary Care Provider] - Stand Alone Forms: Patient Portal/API
[2023-02-27] MEDS: KETOROLAC 30 MG/ML VIAL 60 MG IM (18:51)
[2023-02-27] MEDS: ONDANSETRON 4 MG ODT PREPACK 1 BOTTLE MISC (18:51)
== END 2023-02-27 19:04 | disposition home or self-care (01) ==
PROVIDERS: Emergency Provider Emergency Medicine; PCP Registered Nurse Diabetes Educator
DX: M25.552 Pain in left hip (principal)
CPT/HCPCS: 73502; 96372; 99283; J1885

== ENCOUNTER 2023-08-05 22:55 | Emergency (ER) | payer OTHER, MEDICAID, SELFPAY ==
[2023-08-05 22:58] VITALS: BP 124/81; PULSE 94; RESP 17; TEMP 36.1; O2SAT 98; BMI 13.4
--- NOTE | 2023-08-05 23:29 | ED_ITS ---
HPI - Nausea/Vomiting/Diarrhea General Chief complaint: Nausea/Vomiting/Diarrhea Stated complaint: NVD Time Seen by Provider: 08/05/23 23:25 Source: patient Mode of arrival: Wheelchair History of Present Illness HPI Narrative: Patient is a 48-year-old female who has a significant alcohol use history who is here for evaluation of nausea and vomiting for the past 2 days. She denies any objective fevers but does feel feverish it. No recent travel. States that her last drink of alcohol was just prior to arrival here in the ER. Has not tried any antinausea medications at home. She states she ?hurts all over? did take some ibuprofen yesterday but is unsure as to whether or not she kept any of it down because of the vomiting. No urinary symptoms. No change in bowel habits. Related Data Home Medications Medication Instructions Recorded Confirmed copper 380 square mm intrauterine intrauterine 09/27/20 09/27/20 device (ParaGard T 380A) Previous Rx's Medication Instructions Recorded prednisone 10 mg tablets in a dose See Rx Instructions PO .COMPLEX 03/15/22 pack #21 ea ondansetron 4 mg disintegrating 4 mg PO Q6H PRN nausea and 02/27/23 tablet vomiting #10 tabs Allergies Allergy/AdvReac Type Severity Reaction Status Date / Time No Known Drug Allergies Allergy Verified 08/05/23 22:58 Review of Systems Review of Systems Narrative: See HPI Patient History Medical History Chicken pox Marijuana smoker Current smoker Excessive drinking of alcohol Surgical History Anesthesia History of surgery Status post hernia repair Status post loop electrosurgical excision procedure (LEEP) of cervix Family History Mother Seizures Grandmother Stroke Social History Smoking Status: Current every day smoker Tobacco: How many years used: 27 quit status: not considering quitting alcohol intake: current (2-24oz per day ) substance use type: marijuana (Daily ) Smoking Status: Current every day smoker tobacco type: cigarettes alcohol intake frequency: 3 or more drinks per day Alcohol type: beer, wine and hard liquor Substance Use Type: marijuana Exam Initial Vital Signs Initial Vital Signs: Vital Signs Temperature 97.0 F L 08/05/23 22:58 Pulse Rate 94 H 08/05/23 22:58 Respiratory Rate 17 08/05/23 22:58 Blood Pressure 124/81 08/05/23 22:58 Pulse Oximetry 98 08/05/23 22:58 Oxygen Delivery Method Room Air 08/05/23 22:58 Const General: disheveled HENMT Mouth: moist mucous membranes Resp Effort & Inspection: normal respiratory effort Auscultation: clear to auscultation bilaterally Cardio Rate: regular rate Rhythm: regular rhythm GI Inspection: normal to inspection Skin General: no rashes or lesions noted Neuro General: patient alert, patient awake and moves all extremities Extrem General: capillary refill normal Course Orders Ordered: ED Orders 08/05/23 23:51 Complete Blood Count AUTO DIFF Stat Comprehensive Metabolic Panel Stat ETOH [Ethanol (ETOH)] Stat Lipase Stat Test Serum,Qual Stat Discontinued Medications Sodium Chloride (Normal Saline 0.9%) 1,000 mls @ 1,000 mls/hr IV BOLUS ONE Stop: 08/06/23 00:27 Last Infusion: 08/06/23 01:19 Dose: Infused Documented By: Admin: 08/05/23 23:47 Dose: 1,000 mls/hr Documented By: MONY Thiamine HCl 100 mg/ Sodium (Chloride) 101 mls @ 404 mls/hr IV NOW ONE Stop: 08/05/23 23:29 Last Infusion: 08/06/23 00:14 Dose: Infused Documented By: Admin: 08/05/23 23:47 Dose: 404 mls/hr Documented By: MONY Ondansetron HCl (Ondansetron 4 Mg/2 Ml Inj) 4 mg IV NOW ONE Stop: 08/05/23 23:29 Last Admin: 08/05/23 23:46 Dose: 4 mg Documented By: MONY Ondansetron HCl (Ondansetron 4 Mg Odt Prepack) 1 bottle MISC DIRECTED ONE Stop: 08/06/23 02:34 Last Admin: 08/06/23 02:43 Dose: 1 bottle Documented By: KERRIE Pantoprazole Sodium (Pantoprazole 40 Mg Vial) 40 mg IV NOW ONE Stop: 08/06/23 00:09 Last Admin: 08/06/23 00:27 Dose: 40 mg Documented By: THIEN Vital Signs Vital signs: Vital Signs - 8 hr 08/05/23 22:58 08/05/23 23:49 08/05/23 23:52 Temperature 97.0 F L Pulse Rate 94 H 70 74 Respiratory Rate 17 Blood Pressure 124/81 Pulse Oximetry 98 96 100 Oxygen Delivery Method Room Air 08/05/23 23:52 08/06/23 00:00 Temperature Pulse Rate 73 Respiratory Rate Blood Pressure 111/75 Pulse Oximetry 100 Oxygen Delivery Method MDM - Nausea/Vomiting/Diarrhea Lab Data Attestation: I reviewed the patient's lab results. 08/05/23 23:51 08/05/23 23:51 Labs: Lab Results 08/05/23 Range/Units 23:51 WBC 4.6 (4.5-11.0) X10^3/uL RBC 3.51 L (4.0-5.2) X10^6/uL Hgb 13.5 (12.0-16.0) g/dL Hct 39.0 (36-46) % MCV 111.1 H (80-100) fL MCH 38.3 H (26-34) PG MCHC 34.5 (30-36) % RDW 13.7 (11.6-14.8) % Plt Count 171 (150-400) X10^3/uL Neut % (Auto) 38.8 L (50-75) % Lymph % (Auto) 44.6 H (25-40) % [place] % (Auto) 14.1 H (3-14) % Eos % (Auto) 1.9 L (2-4) % Baso % (Auto) 0.6 (0-2) % Neut # (Auto) 1800 (6368-7356) /uL Lymph # (Auto) 2100 (0978-4470) /uL [place] # (Auto) 700 (0-900) /uL Eos # (Auto) 100 (0-450) /uL Baso # (Auto) 0 (0-100) /uL Platelet Estimate Adequate on smear RBC Morphology See below Macrocytosis 1+ H Sodium 138 (137-145) mmol/L Potassium 3.4 (3.4-5.1) mmol/L Chloride 99 (98-107) mmol/L Carbon Dioxide 26 (22-32) mmol/L BUN 6 L (7-17) mg/dL Creatinine 0.56 (0.52-1.04) mg/dL Estimated GFR > 60 (>60) mL/min BUN/Creatinine Ratio 10.7 (6-22) Glucose 79 (70-100) mg/dL Calcium 8.2 L (8.4-10.2) mg/dL Total Bilirubin 1.1 (0.2-1.3) mg/dL AST 97 H (14-36) IU/L ALT 34 (<35) IU/L Alkaline Phosphatase 106 (38-126) U/L Total Protein 6.8 (6.3-8.2) g/dL Albumin 3.8 (3.5-5.0) g/dL Globulin 3.0 (1.7-4.1) g/dL Albumin/Globulin Ratio 1.3 (1.0-2.8) Lipase 202 (23-300) U/L Serum , Qual Negative (Negative) Ethyl Alcohol 327 H ( - 10) mg/dL MDM Narrative Medical decision making narrative: After fluids and medication here in the emergency department patient was able to tolerate oral intake. She has a unremarkable exam. Alcohol level is significantly elevated which is most likely causing the vomiting. She was not in any acute withdrawal. Will discharge patient home with nausea medication. She was given return precautions. She expressed understanding and agreement. Discharge Plan Departure Patient Disposition: Home Clinical Impression: Alcohol intoxication, Nausea and vomiting Instructions: Alcohol Use Disorder, Nausea and Vomiting-Adult Activity Restrictions/Additional Instructions: No driving for the next 24 hours or in the future if you drink alcohol. I do recommend a bland diet for the next couple days. Recommend that you increase your fluid intake by drinking small amounts more frequently. Contact your primary doctor for follow-up Prescriptions: No Action ParaGard T 380A 380 square mm intrauterine device intrauterine prednisone 10 mg tablets,dose pack See Rx Instructions .ROUTE .COMPLEX Qty: 21 0RF Rx Instructions: orally per package directions ondansetron 4 mg tablet,disintegrating 4 mg PO Q6H PRN (Reason: nausea and vomiting) Qty: 10 0RF Referrals: Kyle Diaz ARNP [Primary Care Provider] - Stand Alone Forms: Patient Portal/API
[2023-08-05] MEDS: ONDANSETRON 4 MG/2 ML INJ IV (23:46)
[2023-08-05] MEDS: SODIUM CHLORIDE 0.9% 1,000 ML 1000 ML IV (23:47)
[2023-08-05] MEDS: THIAMINE 100 MG in SODIUM CHLORIDE 0.9% 100 ML 404 MG IV (23:47)
[2023-08-05 23:49] VITALS: PULSE 70; O2SAT 96
[2023-08-05 23:52] VITALS: BP 111/75; PULSE 74; O2SAT 100
[2023-08-05 23:59] LABS: Add Manual Diff / Slide Review NO; Basophils Absolute Auto 0 /uL (0-100); Basophils Percent Auto 0.6 % (0-2); Eosinophils Absolute Auto 100 /uL (0-450); Eosinophils Percent Auto 1.9 % (2-4); Hemoglobin 13.5 g/dL (12.0-16.0); Lymphocytes Absolute Auto 2100 /uL (1100-4500); Lymphocytes Percent Auto 44.6 % (25-40); Mean Corpuscular HGB Conc 34.5 % (30-36); Mean Corpuscular Hemoglobin 38.3 PG (26-34); Mean Corpuscular Volume 111.1 fL (80-100); Monocytes Absolute Auto 700 /uL (0-900); Monocytes Percent Auto 14.1 % (3-14); Neutrophils Absolute Auto 1800 /uL (1500-7000); Neutrophils Percent Auto 38.8 % (50-75); Platelet Count 171 X10^3/uL (150-400); Red Blood Cell Count 3.51 X10^6/uL (4.0-5.2); Red Cell Distribution Width 13.7 % (11.6-14.8); White Blood Cell Count 4.6 X10^3/uL (4.5-11.0)
[2023-08-06] VITALS: PULSE 73; O2SAT 100
[2023-08-06 00:17] LABS: Alanine Aminotransferase 34 IU/L (<35); Albumin 3.8 g/dL (3.5-5.0); Albumin Globulin Ratio 1.3 (1.0-2.8); Alkaline Phosphatase 106 U/L (38-126); Aspartate Aminotransferase 97 IU/L (14-36); BUN Creatinine Ratio 10.7 (6-22); Bilirubin Total 1.1 mg/dL (0.2-1.3); Blood Urea Nitrogen 6 mg/dL (7-17); Calcium 8.2 mg/dL (8.4-10.2); Carbon Dioxide 26 mmol/L (22-32); Chloride 99 mmol/L (98-107); Estimated Glomerular Filt Rate > 60 mL/min (>60); Glucose 79 mg/dL (70-100); HEMOLYSIS < 15 (0-50); Lipase 202 U/L (23-300); Potassium 3.4 mmol/L (3.4-5.1); Sodium 138 mmol/L (137-145); Total Protein 6.8 g/dL (6.3-8.2)
[2023-08-06 00:23] LABS: Ethanol (ETOH) 327 mg/dL
[2023-08-06] MEDS: PANTOPRAZOLE 40 MG VIAL IV (00:27)
[2023-08-06 00:54] LABS: Pregnancy Test Serum,Qual Negative (Negative)
[2023-08-06 00:55] LABS: Macrocytosis 1+; Platelet Estimate Adequate on smear
[2023-08-06] MEDS: ONDANSETRON 4 MG ODT PREPACK 1 BOTTLE MISC (02:43)
== END 2023-08-06 02:46 | disposition home or self-care (01) ==
PROVIDERS: Emergency Provider Emergency Medicine; PCP Registered Nurse Diabetes Educator
DX: F10.129 Alcohol abuse with intoxication, unspecified (principal); Y90.8 Blood alcohol level of 240 mg/100 ml or more; R11.2 Nausea with vomiting, unspecified
CPT/HCPCS: 36415; 80053; 80320; 83690; 84703; 85025; 96361; 96374; 96375; 99284; C9113; J2405

== ENCOUNTER 2023-11-16 21:27 | Emergency (ER) | payer OTHER, MEDICAID, SELFPAY ==
[2023-11-16 21:30] VITALS: BP 122/78; PULSE 93; RESP 18; TEMP 36.8; O2SAT 96; BMI 13.7
--- NOTE | 2023-11-16 21:35 | DI.RAD.S_ITS ---
PROCEDURE: XR ANKLE LT MIN 3V INDICATIONS: fall/pain TECHNIQUE: 3 views of the ankle were acquired. COMPARISON: None. FINDINGS: Bones: No fractures or dislocations. Ankle mortise is normally aligned. No suspicious bony lesions. Soft tissues: Moderate tibiotalar joint effusion. Soft tissue swelling around ankle joint is also noted. Achilles tendon appears normal. IMPRESSION: No gross acute ankle fracture or dislocation. Moderate joint effusion and anterior left ankle soft tissue swelling. Dictated by: Maicol Bowens M.D. on 11/16/2023 at 22:10 Approved by: Maicol Bowens M.D. on 11/16/2023 at 22:11
--- NOTE | 2023-11-16 22:19 | ED_ITS ---
HPI - Extremity Injury (Lower) General Chief Complaint: Extremity Injury, Lower Stated Complaint: injured lt ankle Time Seen by Provider: 11/16/23 22:00 Source: patient Mode of arrival: Wheelchair History of Present Illness HPI Narrative: Patient is a 48-year-old female who is here for evaluation of a left ankle injury. Patient states that earlier this evening she tripped over a dog bone twisting her left ankle. Has been able to walk but it hurts to walk on it. She states she has broken both of her feet in the past. No other injuries from the event. She does have ice on her ankle provided by triage upon my evaluation. Related Data Home Medications Medication Instructions Recorded Confirmed copper 380 square mm intrauterine intrauterine 09/27/20 09/27/20 device (ParaGard T 380A) Previous Rx's Medication Instructions Recorded prednisone 10 mg tablets in a dose See Rx Instructions PO .COMPLEX 03/15/22 pack #21 ea ondansetron 4 mg disintegrating 4 mg PO Q6H PRN nausea and 02/27/23 tablet vomiting #10 tabs Allergies Allergy/AdvReac Type Severity Reaction Status Date / Time No Known Drug Allergies Allergy Verified 08/05/23 22:58 Review of Systems Constitutional Constitutional: Reports system reviewed and no additional complaints, except as documented Musculoskeletal Musculoskeletal: Reports system reviewed and no additional complaints, except as documented Integumentary/Breasts Skin/Breast: Reports system reviewed and no additional complaints, except as documented Neurologic Neurologic: Reports system reviewed and no additional complaints, except as documented Patient History Medical History Chicken pox Marijuana smoker Current smoker Excessive drinking of alcohol Surgical History Anesthesia History of surgery Status post hernia repair Status post loop electrosurgical excision procedure (LEEP) of cervix Family History Mother Seizures Grandmother Stroke Social History Smoking Status: Current every day smoker Tobacco: How many years used: 27 quit status: not considering quitting alcohol intake: current (2-24oz per day ) substance use type: marijuana (Daily ) Smoking Status: Current every day smoker tobacco type: cigarettes alcohol intake frequency: 3 or more drinks per day Alcohol type: beer, wine and hard liquor Substance Use Type: marijuana Exam Initial Vital Signs Initial Vital Signs: Vital Signs Temperature 98.3 F 11/16/23 21:30 Pulse Rate 93 H 11/16/23 21:30 Respiratory Rate 18 11/16/23 21:30 Blood Pressure 122/78 11/16/23 21:30 Pulse Oximetry 96 11/16/23 21:30 Oxygen Delivery Method Room Air 11/16/23 21:30 Skin General: no rashes or lesions noted Neuro Sensory Exam: no sensory deficits noted Extrem Other: Swelling along the lateral malleolus. No tenderness along the proximal fibula. No tenderness in the dorsum of the foot. Achilles tendon is intact Course Orders Ordered: ED Orders 11/16/23 21:35 XR ankle LT min 3V Stat Vital Signs Vital signs: Vital Signs - 8 hr 11/16/23 21:30 11/16/23 22:35 Temperature 98.3 F 97.8 F Pulse Rate 93 H 64 Respiratory Rate 18 16 Blood Pressure 122/78 120/87 Pulse Oximetry 96 98 Oxygen Delivery Method Room Air Room Air MDM - Extremity Injury (Lower) Imaging Data Extremity x-ray #1: Radiologist's Impression: PROCEDURE: XR ANKLE LT MIN 3V INDICATIONS: fall/pain TECHNIQUE: 3 views of the ankle were acquired. COMPARISON: None. FINDINGS: Bones: No fractures or dislocations. Ankle mortise is normally aligned. No suspicious bony lesions. Soft tissues: Moderate tibiotalar joint effusion. Soft tissue swelling around ankle joint is also noted. Achilles tendon appears normal. IMPRESSION: No gross acute ankle fracture or dislocation. Moderate joint effusion and anterior left ankle soft tissue swelling. [facility] Narrative Medical decision making narrative: No fractures or dislocations noted on the x-rays. She does have bruising around the lateral malleolus. She was neurovascularly intact. Discussed this with the patient. She was given an Scout bandage for comfort. She denied the need for crutches. She was given return precautions. She expressed understanding and agreement. Discharge Plan Departure Patient Disposition: Home Clinical Impression: Left ankle sprain Instructions: DI for Ankle Sprain, How To Perform RICE (Rest, Ice, Compress, Elevate), How to Apply an Elastic Wrap on Ankle Activity Restrictions/Additional Instructions: There were no fractures noted on the x-rays. I do recommend ice for the next couple days and also the elastic bandage. You can walk 1 your leg as tolerated. Return to the emergency department for new symptoms Prescriptions: No Action ParaGard T 380A 380 square mm intrauterine device intrauterine prednisone 10 mg tablets,dose pack See Rx Instructions .ROUTE .COMPLEX Qty: 21 0RF Rx Instructions: orally per package directions ondansetron 4 mg tablet,disintegrating 4 mg PO Q6H PRN (Reason: nausea and vomiting) Qty: 10 0RF Referrals: Kyle Diaz ARNP [Primary Care Provider] - Stand Alone Forms: Patient Portal/API
[2023-11-16 22:35] VITALS: BP 120/87; PULSE 64; RESP 16; TEMP 36.6; O2SAT 98
== END 2023-11-16 22:36 | disposition home or self-care (01) ==
PROVIDERS: Emergency Provider Emergency Medicine; PCP Registered Nurse Diabetes Educator
DX: S93.402A Sprain of unspecified ligament of left ankle, initial encounter (principal); W01.0XXA Fall on same level from slipping, tripping and stumbling without subsequent striking against object, initial encounter
CPT/HCPCS: 73610; 99282; 99283

== ENCOUNTER 2024-04-02 21:02 | Emergency (ER) | payer OTHER, SELFPAY ==
[2024-04-02 21:20] VITALS: BP 121/81; PULSE 90; RESP 14; TEMP 36.2; O2SAT 96; BMI 13.7
--- NOTE | 2024-04-02 21:27 | DI.RAD.S_ITS ---
PROCEDURE: XR RIBS RT MIN 3V W CXR 1V INDICATIONS: fall on right side/difficulty taking deep breaths TECHNIQUE: 2 views of the ribs were acquired, along with a single view chest. COMPARISON: None. FINDINGS: Surgical changes and devices: None. Bones and chest wall: No fractures or dislocations. No suspicious bony lesions. Overlying soft tissues appear unremarkable. Lungs and pleura: No pleural effusions or pneumothorax. Lungs appear clear. Mediastinum: Mediastinal contours appear normal. Heart size is normal. IMPRESSION: No acute displaced rib fracture or pneumothorax. Approved by: Kenisha Martin M.D.,Ph.D. on 04/02/2024 at 22:03
== END 2024-04-02 23:13 | disposition left against medical advice (07) ==
PROVIDERS: Emergency Provider Emergency Medicine; PCP Registered Nurse Diabetes Educator
DX: R07.81 Pleurodynia (principal); W19.XXXA Unspecified fall, initial encounter
CPT/HCPCS: 71101; 99281

== ENCOUNTER 2024-05-16 09:46 | Emergency (ER) | payer OTHER, SELFPAY ==
[2024-05-16] VITALS (20 sets, daily range): BP systolic 92–166; BP diastolic 62–123; PULSE 65–99; RESP 13–39; TEMP 36.7–37.1; O2SAT 95–99; BMI 13.7
--- NOTE | 2024-05-16 09:56 | ED_ITS ---
HPI - General Adult General Chief complaint: Fall Stated complaint: Poss concussion Time Seen by Provider: 05/16/24 09:52 History of Present Illness HPI narrative: 49-year-old woman friend to the point of cachexia, tremulous, significant midface bruising complaining of falling but details of fall are obscure. She notes she does drink quite a bit. She reports that she fell last night is having mid facial pain and persistent vomiting. She states that she does not have alcohol withdrawal symptoms if she does not drink. States she fell a couple of days ago and complains of right lower anterior rib pain, wincing with moving or deep breathing. There is an urgent care visit with rib x-rays done on April 02 that showed no acute fractures. Her partner notes that she does drink and she notes that she has been falling much more frequently over the last number of weeks to months, timeframe is uncertain. Related Data Home Medications Medication Instructions Recorded Confirmed copper 380 square mm intrauterine intrauterine 09/27/20 09/27/20 device (ParaGard T 380A) Allergies Allergy/AdvReac Type Severity Reaction Status Date / Time No Known Drug Allergies Allergy Verified 08/05/23 22:58 Review of Systems Review of Systems Narrative: Pertinent positive and negative findings as per HPI Patient History Medical History Chicken pox Marijuana smoker Current smoker Excessive drinking of alcohol Surgical History Anesthesia History of surgery Status post hernia repair Status post loop electrosurgical excision procedure (LEEP) of cervix Family History Mother Seizures Grandmother Stroke Social History Smoking Status: Current every day smoker Tobacco: How many years used: 27 quit status: not considering quitting alcohol intake: current (2-24oz per day ) substance use type: marijuana (Daily ) Smoking Status: Current every day smoker tobacco type: cigarettes, e-cigarettes and vaping alcohol intake frequency: 3 or more drinks per day Alcohol type: beer, wine and hard liquor Exam Initial Vital Signs Initial Vital Signs: Vital Signs Pulse Oximetry 97 05/16/24 09:51 General: Cachectic, chronically ill-appearing significant bruising over her midface without abrasion HEENT: Dry, slightly jaundiced sclera, no obvious tenderness around the eye sockets and extraocular eye movement is unrestricted Neck: No cervical spine tenderness Respiratory: Lungs are clear to auscultation, tenderness to palpation lower right ribs without significant bruising Cardiac: Tachycardic without murmurs Abdomen: Soft, diffuse tenderness, no rebound or guarding. Skin: Thin pale, multiple bruises in various stages of healing over extremities and torso Neurologic: She is moving all extremities, tremulous Extremities: No obvious trauma, no lower extremity edema Psych: Anxious, withdrawn, poor eye contact, significant agitation with CIWA=17 Course Orders Ordered: ED Orders 05/16/24 10:03 CT chest abd pel w con Stat 05/16/24 10:04 CT cervical spine wo con Stat CT facial bones wo con Stat CT head/brain wo con Stat 05/16/24 10:10 Complete Blood Count AUTO DIFF Stat Comprehensive Metabolic Panel Stat Ethanol (ETOH) Stat Lipase Stat Magnesium Stat PT [Prothrombin Time INR] Stat PTT Partial Thromboplastin Brigido Stat Hydromorphone HCl (Hydromorphone 0.5 Mg Inj) 0.5 mg IV Q15MIN PRN PRN Reason: Pain, POTASSIUM CHLORIDE IN WATER (Potassium Cl 10 Meq/100 Ml Mira) 10 meq in 100 mls @ 100 mls/hr IV Q1H WILSON Stop: 05/16/24 12:59 Discontinued Medications Sodium Chloride (Normal Saline 0.9%) 1,000 mls @ 1,000 mls/hr IV BOLUS ONE Stop: 05/16/24 11:00 Last Infusion: 05/16/24 11:11 Dose: 1,000 mls/hr Documented By: Infusion: 05/16/24 10:38 Dose: 0 mls/hr Documented By: Admin: 05/16/24 10:28 Dose: 1,000 mls/hr Documented By: RB Thiamine HCl 100 mg/ Sodium (Chloride) 101 mls @ 404 mls/hr IV NOW ONE Stop: 05/16/24 10:02 Last Infusion: 05/16/24 11:27 Dose: Infused Documented By: Infusion: 05/16/24 11:13 Dose: 404 mls/hr Documented By: Infusion: 05/16/24 10:38 Dose: 0 mls/hr Documented By: Admin: 05/16/24 10:33 Dose: 404 mls/hr Documented By: RB Magnesium Sulfate (Magnesium Sulfate) 2 gm in 50 mls @ 150 mls/hr IV NOW ONE Stop: 05/16/24 11:08 Last Admin: 05/16/24 11:48 Dose: 150 mls/hr Lorazepam (Lorazepam 2 Mg/Ml Inj) 1 mg IV NOW ONE Stop: 05/16/24 10:02 Last Admin: 05/16/24 10:33 Dose: 1 mg Documented By: RB Ondansetron HCl (Ondansetron 4 Mg/2 Ml Inj) 4 mg IV NOW ONE Stop: 05/16/24 10:02 Last Admin: 05/16/24 10:32 Dose: 4 mg Documented By: RB Potassium Chloride (Potassium Chloride 20 Meq Tab) 40 meq PO NOW ONE Stop: 05/16/24 10:50 Last Admin: 05/16/24 11:51 Dose: 40 meq Vital Signs Vital signs: Vital Signs - 8 hr 05/16/24 09:51 05/16/24 09:52 05/16/24 09:52 Temperature Pulse Rate 98 H Respiratory Rate Blood Pressure 163/123 H Pulse Oximetry 97 97 Oxygen Delivery Method 05/16/24 09:57 05/16/24 09:57 05/16/24 10:00 Temperature 98.7 F Pulse Rate 99 H 96 H Respiratory Rate 20 Blood Pressure 161/98 H 163/123 H Pulse Oximetry 95 95 Oxygen Delivery Method Room Air 05/16/24 10:00 05/16/24 10:00 05/16/24 10:15 Temperature Pulse Rate 97 H 84 Respiratory Rate 39 H Blood Pressure 166/108 H Pulse Oximetry 99 97 Oxygen Delivery Method 05/16/24 10:15 05/16/24 10:30 05/16/24 10:30 Temperature Pulse Rate 80 Respiratory Rate 16 Blood Pressure 140/103 H 152/96 H Pulse Oximetry 98 Oxygen Delivery Method 05/16/24 11:00 05/16/24 11:15 05/16/24 11:20 Temperature Pulse Rate 78 83 Respiratory Rate 15 18 Blood Pressure 138/92 H Pulse Oximetry 96 97 Oxygen Delivery Method 05/16/24 11:20 Temperature Pulse Rate 79 Respiratory Rate 13 Blood Pressure Pulse Oximetry 95 Oxygen Delivery Method Medical Decision Making Lab Data 05/16/24 10:10 05/16/24 10:10 Labs: Lab Results 05/16/24 Range/Units 10:10 WBC 8.0 (4.5-11.0) X10^3/uL RBC 3.87 L (4.0-5.2) X10^6/uL Hgb 14.8 (12.0-16.0) g/dL Hct 43.5 (36-46) % MCV 112.3 H (80-100) fL MCH 38.1 H (26-34) PG MCHC 34.0 (30-36) % RDW 14.4 (11.6-14.8) % Plt Count 273 (150-400) X10^3/uL Neut % (Auto) 49.4 L (50-75) % Lymph % (Auto) 34.8 (25-40) % Saunders % (Auto) 13.5 (3-14) % Eos % (Auto) 1.3 L (2-4) % Baso % (Auto) 1.0 (0-2) % Neut # (Auto) 3900 (3008-5679) /uL Lymph # (Auto) 2800 (5475-3568) /uL Saunders # (Auto) 1100 H (0-900) /uL Eos # (Auto) 100 (0-450) /uL Baso # (Auto) 100 (0-100) /uL RBC Morphology Not Reportable Macrocytosis 3+ H PT 11.3 (9.4-12.5) SECONDS INR 1.0 (0.9-1.3) APTT 34 (25.1-36.5) SECONDS Sodium 146 H (137-145) mmol/L Potassium 3.2 L (3.4-5.1) mmol/L Chloride 107 (98-107) mmol/L Carbon Dioxide 27 (22-32) mmol/L BUN 6 L (7-17) mg/dL Creatinine 0.61 (0.52-1.04) mg/dL Estimated GFR > 60 (>60) mL/min BUN/Creatinine Ratio 9.8 (6-22) Glucose 130 H (70-100) mg/dL Calcium 8.6 (8.4-10.2) mg/dL Magnesium 1.6 (1.6-2.3) mg/dL Total Bilirubin 0.3 (0.2-1.3) mg/dL AST 39 H (14-36) IU/L ALT 20 (<35) IU/L Alkaline Phosphatase 95 (38-126) U/L Total Protein 7.3 (6.3-8.2) g/dL Albumin 3.8 (3.5-5.0) g/dL Globulin 3.5 (1.7-4.1) g/dL Albumin/Globulin Ratio 1.1 (1.0-2.8) Lipase 72 (23-300) U/L Ethyl Alcohol 353 H ( - 10) mg/dL Imaging Data Facial CT: Radiologist's Impression: PROCEDURE: CT FACIAL BONES WO CON INDICATIONS: trauma TECHNIQUE: Noncontrast 2.5 mm thick axial images acquired from the mandible through the frontal sinuses, with coronal and sagittal reformatting. For radiation dose reduction, the following was used: automated exposure control, adjustment of mA and/or kV according to patient size. COMPARISON: None. FINDINGS: Image quality: Excellent. Mild left anterior frontal, left supraorbital soft tissue scalp swelling/hematoma [address] evidence of fracture or high attenuation soft tissue foreign body. Diffuse opacification left maxillary sinus and moderate mucoperiosteal thickening right maxillary, left ethmoid sinuses measuring up to 7 mm. Diffuse low attenuation surrounding numerous maxillary teeth predominantly teeth 1, 2, 3, 13 -16 commonly related to dental caries, periapical abscess or other dental process. Follow-up with dental professional. Bones: Suspected a remote nondisplaced fracture of the right nasal bone (coronal series 4, image 21) without overlying soft tissue swelling to suggest acute fracture. Orbital suero are intact. Sinus suero show no fracture or deformity. Nasal bones and septum are intact. Visualized portions of the mandible demonstrate no fractures or subluxation. Zygomatic arches are intact. Pterygoid plates are intact. Visualized portions of the skull base and auditory canals are intact. Soft tissues: No masses, or fluid collections. No enlarged lymph nodes. No soft tissue lacerations or debris. Vascular: Visualized vascular structures appear normal in the absence of contrast. Bony vascular foramina and canals are intact. IMPRESSION: Suspected remote right nasal bone fracture without findings to suggest acute fracture. Left anterior frontal left supraorbital soft tissue scalp swelling/hematoma. Diffuse opacification in the left maxillary sinus with osseous thickening suggests chronic sinusitis as discussed above. Suspected dental caries or other dental process. Dictated by: Alexei Cardenas M.D. on 05/16/2024 at 11:29 Approved by: Alexei Cardenas M.D. on 05/16/2024 at 11:35 CT chest abdomen pelvis: Radiologist's Impression: PROCEDURE: CT CHEST ABD PEL W CON INDICATIONS: trauma, not high impact TECHNIQUE: After the administration of intravenous contrast, 5 mm thick sections acquired from the lung apices to the symphysis. 2.5 mm thick coronal and sagittal reformats were acquired. Additional 7 mm thick coronal maximum intensity projection (MIP) reformats acquired through the lungs. Optional 10-minute delayed imaging may be performed from the kidneys to the bladder. For radiation dose reduction, the following was used: automated exposure control, adjustment of mA and/or kV according to patient size. COMPARISON: None. FINDINGS: Image quality: Diagnostic. CHEST: Small 2 centimeter area of discoid atelectatic changes or pleural-parenchymal scarring or other patchy opacification in the right lower lobe posterior basal. No CT evidence of displaced acute rib fracture. Suspected remote chronic right lateral, anterolateral 7th through 9th rib fractures with some callus formation. Mild peribronchial thickening predominantly in the lower lobes right greater than left is nonspecific may be related to bronchitis, asthma or other process. Moderate nonspecific wall thickening of the esophagus diffusely but predominantly mid and distal esophagus into the gastroesophageal junction and stomach more than expected for common artifact from partial nondistention and esophagitis, gastritis or other process could be considered. No surrounding gas or other secondary findings to suggest any posttraumatic change. Moderate degenerative changes lower cervical spine. Mild decreased height with anterior wedging of the T11 vertebral body which is unchanged from prior CT abdomen/pelvis 03/15/2022. No pneumothorax, no pleural effusion, no pericardial effusion, no lobar consolidation. Lower Neck: No enlarged lymph nodes. Thyroid: No thyroid nodules which require sonographic evaluation. Axillae: No enlarged lymph nodes. Chest Wall: No subcutaneous gas. Mediastinum: No mediastinal hematomas. Heart size is normal. No pericardial effusion. Thoracic aorta and pulmonary arteries demonstrate normal size and enhancement. No mediastinal or hilar adenopathy. ABDOMEN: No free gas, no abnormal free fluid in the abdomen. Moderate wall thickening of the stomach and gastric rugae a more than expected for artifact from partial nondistention and gastritis or other process could be considered. Nonspecific wall thickening of the distal rectum/anus commonly artifact from partial nondistention although proctitis, hemorrhoids or other anal rectal lesion should be considered. T-shaped metallic intrauterine device in place in the uterus. Rurr-lw-svfylfaf degenerative changes lower thoracic, lumbar spine most notably at L3-4 unchanged from the prior exam. Gdko-tj-lveilsnm degenerative changes bilateral hips right greater than left. Postoperative changes with left proximal femur intramedullary aldo with proximal trochanteric nail. Gallbladder is mildly distended commonly related to NPO without gallbladder wall thickening or pericholecystic fluid to suggest acute cholecystitis. Mild calcifications of the aorta and iliac vessels. Appendix is nondilated within normal limits. Liver: Normal in size contour and attenuation. Biliary ducts: No biliary dilation. Pancreas: Homogenous enhancement. Spleen: Homogenous enhancement without laceration or hematoma. Adrenal Glands: Symmetric enhancement. Kidneys and Ureters: Symmetric enhancement. No hydronephrosis. No solid mass. No complex renal cystic lesion which requires follow up. Stomach and Bowel: Normal colonic caliber, without significant wall thickening. Ventral Wall: No hernia. Abdominal Nodes: No retroperitoneal or mesenteric adenopathy by size criteria. Vessels: Aorta and inferior vena cava are normal in size. PELVIS: Pelvic Organs: Unremarkable. Bladder: Normal thickness. Pelvic Nodes: No enlarged lymph nodes. Miscellaneous: No inguinal hernias are seen. Bones: Pelvic ring and hip joints appear intact. No displaced rib fractures. IMPRESSION: No CT evidence of acute traumatic injury to the chest, abdomen or pelvis as discussed above. Nonemergent findings in the chest and abdomen as discussed above. Dictated by: Alexei Cardenas M.D. on 05/16/2024 at 11:46 MDM Narrative Medical decision making narrative: CC: Fall last night with significant bruising to mid face and persistent vomiting Complicating co-morbidities: Alcohol use disorder, frailty 2 point of cachexia, multiple falls increasing over the last number of weeks, initial concern for non accidental trauma Data collected from: patient When partner is out of the room, patient is independently evaluated and she denies any concerns for abuse Social determinants of health that may influence the patients condition: Alcohol use disorder Medical records reviewed: ER notes over the last couple of years reviewed most are related to falls, alcohol Differential considered: Facial fractures, acute subdural, chronic subdural, subarachnoid. Multiple rib fractures, intra-abdominal bleeding, acute alcohol withdrawal, cervical spine injury Exam documented above, pertinent findings include: Appears chronically ill, frail, cachectic poor eye contact, significant bruising over her entire mid face without abrasions. Quite tremulous, tachycardic, hypertensive, no murmurs or appreciated abdomen has no rebound or guarding. She is tender right anterior ribs without bruising Lab Test results independently reviewed as above. Pertinent findings: CBC shows no leukocytosis. No anemia. MCV is elevated at 112 platelets are appropriate Chemistries show sodium at 1:46 a.m., potassium at 3.2 creatinine is appropriate. AST is minimally elevated but less than previous Lipase is unremarkable Alcohol level is 353 Imaging studies independently reviewed: CT of the face shows no nasal or orbital fractures. Chronic appearing sinusitis in the left maxillary sinus CT scan of the head shows frontal scalp swelling/hematoma, remote nasal bone fracture, no acute findings including intracranial bleeding CT of the cervical spine shows chronic changes no new findings no new fractures CT scan of the chest abdomen and pelvis does suggest that she has healing right lower anterior rib fractures without evidence of any new fractures or abnormalities in the chest abdomen or pelvis. Treatments: IV fluid, magnesium, thiamine, Ativan, potassium both oral and IV Re-evaluations: Initial concern for multiple trauma, trauma from chronic recent falls, non accidental trauma which with discussion with her partner out of the room patient denies, significant alcohol withdrawal, electrolyte abnormalities Discussion: 49-year-old woman with significant alcohol use disorder significant bruising to the midface but no new fractures. Additional studies do not show evidence of repeat fractures. It does look like the fall at the end of March did fracture her right lower ribs with the appropriate callus formation at this time. She is significantly intoxicated but feels that she is close to her baseline with her alcohol level documented at just a little over 350. Explain to her the vitamins and supplements were given to her today. Reviewed all of her CT scans in detail. Offered help with alcohol use disorder which she declined today. She has her partner who is sober and feels comfortable having her come home and we will be available to be with her this afternoon. Patient will be discharged Discharge Plan Departure Patient Disposition: Home Clinical Impression: Alcohol use disorder, Acute hypokalemia Fall Qualifiers: Encounter type: initial encounter Qualified Code(s): W19.XXXA - Unspecified fall, initial encounter Contusion Qualifiers: Encounter type: initial encounter Contusion area: head Laterality: bilateral Acute alcohol intoxication Qualifiers: Complication of substance-induced condition: uncomplicated Qualified Code(s): F 10.920 - Alcohol use, unspecified with intoxication, uncomplicated Instructions: DI for Eye Contusion, DI for Alcohol Use Disorder Activity Restrictions/Additional Instructions: Thank you for coming in today We did do a thorough evaluation to make sure there were no other injuries. Your face is significantly bruised and is going to turn black and blue for probably 2-3 more weeks. There are no broken bones in your nose, over your cheeks,or your neck. The CT scan of your chest abdomen and pelvis does not show any new fractures, no bleeding no obvious internal injury damage. The area where your hurting on the lower right part of your chest has evidence of nicely healed prior fractures. Your lab work showed the potassium and magnesium were a bit low so we have replaced those. I gave you a dose of thiamine, this is a vitamin that is sometimes gets low when you are drinking quite a bit of alcohol. Your liver is showing some signs of distress, decreasing your alcohol we will definitely help. you have said that you do not want any help with your alcohol use disorder today. If you do change your mind, we are available to help. You are, quite literally, drinking yourself to . I would recommend an ice pack for your face to help with the discomfort. If you find that you are getting worse or develop any new symptoms, please feel free to return to the emergency department for further evaluation. Prescriptions: No Action ParaGard T 380A 380 square mm intrauterine device intrauterine Referrals: Kyle Diaz ARNP [Primary Care Provider] - Stand Alone Forms: Patient Portal/API/Survey
--- NOTE | 2024-05-16 10:03 | DI.CT.S_ITS ---
PROCEDURE: CT CHEST ABD PEL W CON INDICATIONS: trauma, not high impact TECHNIQUE: After the administration of intravenous contrast, 5 mm thick sections acquired from the lung apices to the symphysis. 2.5 mm thick coronal and sagittal reformats were acquired. Additional 7 mm thick coronal maximum intensity projection (MIP) reformats acquired through the lungs. Optional 10-minute delayed imaging may be performed from the kidneys to the bladder. For radiation dose reduction, the following was used: automated exposure control, adjustment of mA and/or kV according to patient size. COMPARISON: None. FINDINGS: Image quality: Diagnostic. CHEST: Small 2 centimeter area of discoid atelectatic changes or pleural-parenchymal scarring or other patchy opacification in the right lower lobe posterior basal. No CT evidence of displaced acute rib fracture. Suspected remote chronic right lateral, anterolateral 7th through 9th rib fractures with some callus formation. Mild peribronchial thickening predominantly in the lower lobes right greater than left is nonspecific may be related to bronchitis, asthma or other process. Moderate nonspecific wall thickening of the esophagus diffusely but predominantly mid and distal esophagus into the gastroesophageal junction and stomach more than expected for common artifact from partial nondistention and esophagitis, gastritis or other process could be considered. No surrounding gas or other secondary findings to suggest any posttraumatic change. Moderate degenerative changes lower cervical spine. Mild decreased height with anterior wedging of the T11 vertebral body which is unchanged from prior CT abdomen/pelvis 03/15/2022. No pneumothorax, no pleural effusion, no pericardial effusion, no lobar consolidation. Lower Neck: No enlarged lymph nodes. Thyroid: No thyroid nodules which require sonographic evaluation. Axillae: No enlarged lymph nodes. Chest Wall: No subcutaneous gas. Mediastinum: No mediastinal hematomas. Heart size is normal. No pericardial effusion. Thoracic aorta and pulmonary arteries demonstrate normal size and enhancement. No mediastinal or hilar adenopathy. ABDOMEN: No free gas, no abnormal free fluid in the abdomen. Moderate wall thickening of the stomach and gastric rugae a more than expected for artifact from partial nondistention and gastritis or other process could be considered. Nonspecific wall thickening of the distal rectum/anus commonly artifact from partial nondistention although proctitis, hemorrhoids or other anal rectal lesion should be considered. T-shaped metallic intrauterine device in place in the uterus. Mqvn-sw-ysvelnwz degenerative changes lower thoracic, lumbar spine most notably at L3-4 unchanged from the prior exam. Qinm-fm-cozfdbbe degenerative changes bilateral hips right greater than left. Postoperative changes with left proximal femur intramedullary aldo with proximal trochanteric nail. Gallbladder is mildly distended commonly related to NPO without gallbladder wall thickening or pericholecystic fluid to suggest acute cholecystitis. Mild calcifications of the aorta and iliac vessels. Appendix is nondilated within normal limits. Liver: Normal in size contour and attenuation. Biliary ducts: No biliary dilation. Pancreas: Homogenous enhancement. Spleen: Homogenous enhancement without laceration or hematoma. Adrenal Glands: Symmetric enhancement. Kidneys and Ureters: Symmetric enhancement. No hydronephrosis. No solid mass. No complex renal cystic lesion which requires follow up. Stomach and Bowel: Normal colonic caliber, without significant wall thickening. Ventral Wall: No hernia. Abdominal Nodes: No retroperitoneal or mesenteric adenopathy by size criteria. Vessels: Aorta and inferior vena cava are normal in size. PELVIS: Pelvic Organs: Unremarkable. Bladder: Normal thickness. Pelvic Nodes: No enlarged lymph nodes. Miscellaneous: No inguinal hernias are seen. Bones: Pelvic ring and hip joints appear intact. No displaced rib fractures. IMPRESSION: No CT evidence of acute traumatic injury to the chest, abdomen or pelvis as discussed above. Nonemergent findings in the chest and abdomen as discussed above. Dictated by: Alexei Cardenas M.D. on 05/16/2024 at 11:46 Approved by: Alexei Cardenas M.D. on 05/16/2024 at 12:09
--- NOTE | 2024-05-16 10:04 | DI.CT.S_ITS ---
PROCEDURE: CT CERVICAL SPINE WO CON INDICATIONS: trauma TECHNIQUE: Noncontrast 3 mm thick sections acquired from the skull base to the T4 level. Sagittal and coronal reformats were then constructed. For radiation dose reduction, the following was used: automated exposure control, adjustment of mA and/or kV according to patient size. COMPARISON: None. FINDINGS: Image quality: Excellent. Bones: No fractures or dislocations. Visualized superior ribs are intact. Multilevel degenerative changes are present. Soft tissues: Prevertebral soft tissues are normal in thickness. No paravertebral hematomas. No apical pneumothoraces. IMPRESSION: No displaced fracture or traumatic subluxation. Dictated by: Adelina Ricci M.D. on 05/16/2024 at 11:58 Approved by: Adelina Ricci M.D. on 05/16/2024 at 12:00
--- NOTE | 2024-05-16 10:04 | DI.CT.S_ITS ---
PROCEDURE: CT HEAD/BRAIN WO CON INDICATIONS: trauma TECHNIQUE: Noncontrast 4.5 mm thick angled axial sections acquired from the foramen magnum to the vertex, with coronal and sagittal reformats. For radiation dose reduction, the following was used: automated exposure control, adjustment of mA and/or kV according to patient size. COMPARISON: None. FINDINGS: Image quality: Diagnostic. Some images are limited by beam hardening artifacts, patient motion artifacts. Probable remote chronic right nasal bone fracture without significant overlying soft tissue swelling to suggest acute fracture. Mild left anterior frontal, left supraorbital soft tissue scalp swelling/hematoma 8 mm depth. Diffuse opacification left maxillary sinus with osseous thickening suggestive of chronic sinusitis. Mucoperiosteal thickening left ethmoid sinus measuring up to [address] evidence of intracranial hemorrhage, mass lesion, mass effect, acute or subacute infarct. There CSF spaces: Basal cisterns are patent. No extra-axial fluid collections. Ventricles are normal in size and shape. Brain: No midline shift. No intracranial masses or hemorrhage. Alvarez-white matter interface is normal. Skull and face: Calvarium and visualized facial bones are intact, without suspicious lesions. IMPRESSION: Suspected remote right nasal bone fracture. Left frontal scalp swelling/hematoma. No CT evidence of intracranial hemorrhage. If symptoms persist or worsen, or there is high clinical suspicion of intracranial abnormality, MR brain could be performed. Dictated by: Alexei Cardenas M.D. on 05/16/2024 at 11:38 Approved by: Alexei Cardenas M.D. on 05/16/2024 at 11:42
--- NOTE | 2024-05-16 10:04 | DI.CT.S_ITS ---
PROCEDURE: CT FACIAL BONES WO CON INDICATIONS: trauma TECHNIQUE: Noncontrast 2.5 mm thick axial images acquired from the mandible through the frontal sinuses, with coronal and sagittal reformatting. For radiation dose reduction, the following was used: automated exposure control, adjustment of mA and/or kV according to patient size. COMPARISON: None. FINDINGS: Image quality: Excellent. Mild left anterior frontal, left supraorbital soft tissue scalp swelling/hematoma [address] evidence of fracture or high attenuation soft tissue foreign body. Diffuse opacification left maxillary sinus and moderate mucoperiosteal thickening right maxillary, left ethmoid sinuses measuring up to 7 mm. Diffuse low attenuation surrounding numerous maxillary teeth predominantly teeth 1, 2, 3, 13 -16 commonly related to dental caries, periapical abscess or other dental process. Follow-up with dental professional. Bones: Suspected a remote nondisplaced fracture of the right nasal bone (coronal series 4, image 21) without overlying soft tissue swelling to suggest acute fracture. Orbital suero are intact. Sinus suero show no fracture or deformity. Nasal bones and septum are intact. Visualized portions of the mandible demonstrate no fractures or subluxation. Zygomatic arches are intact. Pterygoid plates are intact. Visualized portions of the skull base and auditory canals are intact. Soft tissues: No masses, or fluid collections. No enlarged lymph nodes. No soft tissue lacerations or debris. Vascular: Visualized vascular structures appear normal in the absence of contrast. Bony vascular foramina and canals are intact. IMPRESSION: Suspected remote right nasal bone fracture without findings to suggest acute fracture. Left anterior frontal left supraorbital soft tissue scalp swelling/hematoma. Diffuse opacification in the left maxillary sinus with osseous thickening suggests chronic sinusitis as discussed above. Suspected dental caries or other dental process. Dictated by: Alexei Cardenas M.D. on 05/16/2024 at 11:29 Approved by: Alexei Cardenas M.D. on 05/16/2024 at 11:35
[2024-05-16 10:21] LABS: Add Manual Diff / Slide Review NO; Basophils Absolute Auto 100 /uL (0-100); Eosinophils Absolute Auto 100 /uL (0-450); Eosinophils Percent Auto 1.3 % (2-4); Hematocrit 43.5 % (36-46); Hemoglobin 14.8 g/dL (12.0-16.0); Lymphocytes Absolute Auto 2800 /uL (1100-4500); Lymphocytes Percent Auto 34.8 % (25-40); Mean Corpuscular Hemoglobin 38.1 PG (26-34); Mean Corpuscular Volume 112.3 fL (80-100); Monocytes Absolute Auto 1100 /uL (0-900); Monocytes Percent Auto 13.5 % (3-14); Neutrophils Absolute Auto 3900 /uL (1500-7000); Neutrophils Percent Auto 49.4 % (50-75); Platelet Count 273 X10^3/uL (150-400); Red Blood Cell Count 3.87 X10^6/uL (4.0-5.2); Red Cell Distribution Width 14.4 % (11.6-14.8)
[2024-05-16 10:28] LABS: Prothrombin Time 11.3 SECONDS (9.4-12.5)
[2024-05-16] MEDS: SODIUM CHLORIDE 0.9% 1,000 ML 1000 ML IV (10:28)
--- NOTE | 2024-05-16 10:28 | PC.NURSE ---
Patient significant other stepped out of the room and this RN asked patient if they were safe at home which they stated yes. I asked if anyone was harming them or if they are experiencing domestic violence patient stated no, just myself with all these falls.
[2024-05-16 10:31] LABS: PTT Partial Thromboplastin Tim 34 SECONDS (25.1-36.5)
[2024-05-16 10:32] LABS: Alanine Aminotransferase 20 IU/L (<35); Albumin 3.8 g/dL (3.5-5.0); Albumin Globulin Ratio 1.1 (1.0-2.8); Alkaline Phosphatase 95 U/L (38-126); Aspartate Aminotransferase 39 IU/L (14-36); BUN Creatinine Ratio 9.8 (6-22); Bilirubin Total 0.3 mg/dL (0.2-1.3); Blood Urea Nitrogen 6 mg/dL (7-17); Calcium 8.6 mg/dL (8.4-10.2); Carbon Dioxide 27 mmol/L (22-32); Chloride 107 mmol/L (98-107); Estimated Glomerular Filt Rate > 60 mL/min (>60); Globulin 3.5 g/dL (1.7-4.1); Glucose 130 mg/dL (70-100); HEMOLYSIS < 15 (0-50); Lipase 72 U/L (23-300); Magnesium 1.6 mg/dL (1.6-2.3); Potassium 3.2 mmol/L (3.4-5.1); Sodium 146 mmol/L (137-145); Total Protein 7.3 g/dL (6.3-8.2)
[2024-05-16] MEDS: ONDANSETRON 4 MG/2 ML INJ IV (10:32)
[2024-05-16] MEDS: LORazepam 2 MG/ML INJ 1 MG IV (10:33)
[2024-05-16] MEDS: THIAMINE 100 MG in SODIUM CHLORIDE 0.9% 100 ML 404 MG IV (10:33)
[2024-05-16 10:36] LABS: Macrocytosis 3+
--- NOTE | 2024-05-16 10:39 | PC.NURSE ---
Fluids paused as patient left department with [employer] dean for diagnostics.
[2024-05-16 10:41] LABS: Ethanol (ETOH) 353 mg/dL
[2024-05-16] MEDS: MAGNESIUM SULFATE 2 GM/50 ML PIGGYBACK IV (11:48)
[2024-05-16] MEDS: POTASSIUM CHLORIDE 20 MEQ TAB 40 MEQ PO (11:51)
[2024-05-16] MEDS: POTASSIUM CHLORIDE IN WATER 10 MEQ/100 ML PIGGYBACK 100 MEQ IV ×2 (12:35→13:33)
[2024-05-16 13:29] LABS: Bacteria Urine Many (>30); Culture Indicated Urine Specimen Cultured; RBC Urine None Seen (0-5/HPF); Squamous Epithelial Cell Urine 0-1 /HPF (0-5/HPF); Urine Volume 10mL (spun); WBC Urine 10-30/HPF (0-5/HPF)
== END 2024-05-16 14:57 | disposition home or self-care (01) ==
PROVIDERS: Emergency Provider Emergency Medicine; PCP Registered Nurse Diabetes Educator
DX: S09.93XA Unspecified injury of face, initial encounter (principal); S00.03XA Contusion of scalp, initial encounter; R06.02 Shortness of breath; F10.129 Alcohol abuse with intoxication, unspecified; Y90.8 Blood alcohol level of 240 mg/100 ml or more; E87.6 Hypokalemia; W19.XXXA Unspecified fall, initial encounter; R11.2 Nausea with vomiting, unspecified; F17.290 Nicotine dependence, other tobacco product, uncomplicated; F17.210 Nicotine dependence, cigarettes, uncomplicated
CPT/HCPCS: 36415; 70450; 70486; 71260; 72125; 74177; 80053; 80320; 81003; 81015; 83690; 83735; 85025; 85610; 85730; 87077; 87086; 87186; 96365; 96366; 96367; 96375; 99284; 99285; J2060; J2405; J3475; Q9967

== ENCOUNTER 2024-06-06 18:00 | Emergency (ER) | payer OTHER, SELFPAY ==
[2024-06-06 18:15] VITALS: BP 141/83; PULSE 76; RESP 16; TEMP 36.8; O2SAT 98; BMI 14.8
--- NOTE | 2024-06-06 18:19 | DI.RAD.S_ITS ---
PROCEDURE: XR ELBOW LT MIN 3V INDICATIONS: fall TECHNIQUE: 3 views of the elbow were acquired. COMPARISON: None. FINDINGS: Bones: No definite fracture identified. Overall normal alignment. No suspicious osseous lesions. Degenerative changes of the elbow joint Soft tissues: Prominent anterior and small posterior elbow joint effusion. There is overlying soft tissue swelling. No soft tissue calcifications. IMPRESSION: Abnormal anterior and posterior elbow joint effusion without a visible fracture. However, given history of trauma, an occult fracture is suspected. Recommend immobilization and repeat imaging in 10-14 days for further evaluation. Dictated by: Justus Partida M.D. on 06/06/2024 at 19:40 Approved by: Justus Partida M.D. on 06/06/2024 at 19:42
--- NOTE | 2024-06-06 18:19 | DI.RAD.S_ITS ---
PROCEDURE: XR KNEE LT 3V INDICATIONS: fall TECHNIQUE: 3 views of the knee were acquired. COMPARISON: None. FINDINGS: Bones: No fractures or dislocations. No suspicious bony lesions. Soft tissues: No joint effusion. No suspicious soft tissue calcifications. IMPRESSION: No acute bony abnormality or significant effusion. If there are persistent symptoms or clinical suspicion for pathology, then repeat radiographs or advanced imaging (CT or MRI) may be considered for further evaluation. Dictated by: Justus Partida M.D. on 06/06/2024 at 19:40 Approved by: Justus Partida M.D. on 06/06/2024 at 19:40
--- NOTE | 2024-06-06 18:19 | DI.RAD.S_ITS ---
PROCEDURE: XR SHOULDER LT MIN 2V INDICATIONS: fall TECHNIQUE: 2 views of the shoulder were acquired. COMPARISON: None. FINDINGS: Bones: No fractures or dislocations. No suspicious bony lesions. Visualized ribs appear intact. Soft tissues: No suspicious soft tissue calcifications. IMPRESSION: No acute bony abnormality. If there are persistent symptoms or clinical suspicion for pathology, then repeat radiographs or advanced imaging (CT or MRI) may be considered for further evaluation. Dictated by: Justus Partida M.D. on 06/06/2024 at 19:38 Approved by: Justus Partida M.D. on 06/06/2024 at 19:38
--- NOTE | 2024-06-06 18:19 | DI.RAD.S_ITS ---
PROCEDURE: XR HIP W PEL IF DONE LT 2V INDICATIONS: fall TECHNIQUE: AP pelvis with lateral view(s) of the left hip(s). COMPARISON: [facility], CR, XR HIP W PEL IF DONE LT 2V, 02/27/2023, 16:58. FINDINGS: Bones: Stable postsurgical changes of open reduction and internal fixation of the left femur. No evidence for hardware complication. No acute fracture seen. Bony pelvis appears intact. Sacroiliac joints are maintained. Soft tissues: The visualized bowel gas pattern is normal. No suspicious soft tissue calcification. IUD is present. IMPRESSION: Pelvis and left hip without acute fracture or dislocation. Stable postsurgical changes of left proximal femur open reduction and internal fixation without evidence for hardware complication. If there is persistent clinical concern for occult fracture, further evaluation with CT can be considered. Dictated by: Justus Partida M.D. on 06/06/2024 at 19:36 Approved by: Justus Partida M.D. on 06/06/2024 at 19:38
[2024-06-06 19:50] VITALS: BP 154/86; PULSE 55; RESP 18; O2SAT 97
[2024-06-06 20:00] VITALS: BP 152/96; PULSE 70; O2SAT 99
--- NOTE | 2024-06-06 20:06 | ED_ITS ---
HPI - Fall General Chief Complaint: Fall Stated Complaint: GLF, L Arm/Hip Injury Time Seen by Provider: 06/06/24 20:06 Source: patient, RN notes reviewed and old records reviewed Mode of arrival: Ambulatory Limitations: no limitations History of Present Illness HPI Narrative: 49-year-old female history of left hip replacement.. States she was going to walk a Rottweiler dog. She was stepping off a curb got pulled forward and fell onto her left side. She has a little bit of a hematoma on her forehead she states that is actually from walking a different dog on a different a. Patient states she was left shoulder pain and increased pain with movement, left elbow pain which she states it is her worst discomfort. Little bit of hip pain and knee pain. He has been able to straighten and move her leg without much issue. She was can weightbear. She states her shoulders painful but although is the most painful. No numbness or tingling or weakness. No loss of consciousness. No midline neck or back pain. No chest pain or shortness of breath. No other GI or urinary symptoms. Happened about 6 hours ago. Patient took some Midol but no other pain medications. She denies any daily medications. Has had prior hip replacement on the left. Does use tobacco daily, does drink alcohol, uses marijuana, no other recreational drugs reported. She states tetanus is not up-to-date in the last 5 years. She does not wish for it to be updated. Related Data Home Medications Medication Instructions Recorded Confirmed copper 380 square mm intrauterine intrauterine 09/27/20 09/27/20 device (ParaGard T 380A) Previous Rx's Medication Instructions Recorded tramadol 50 mg tablet 50 mg PO Q6H PRN pain #14 tabs 06/06/24 Allergies Allergy/AdvReac Type Severity Reaction Status Date / Time No Known Drug Allergies Allergy Verified 08/05/23 22:58 Review of Systems Review of Systems ROS Unobtainable: All systems reviewed & are unremarkable except as noted in HPI and below Patient History Medical History Chicken pox Marijuana smoker Current smoker Excessive drinking of alcohol Surgical History Anesthesia History of surgery Status post loop electrosurgical excision procedure (LEEP) of cervix Status post hernia repair Family History Mother Seizures Grandmother Stroke Social History Smoking Status: Current every day smoker Tobacco: How many years used: 27 quit status: not considering quitting alcohol intake: current (2-24oz per day ) substance use type: marijuana (Daily ) Smoking Status: Current every day smoker tobacco type: cigarettes, e-cigarettes and vaping alcohol intake frequency: 3 or more drinks per day Alcohol type: beer, wine and hard liquor Exam Narrative Exam Narrative: GEN: Patient appears in moderate distress. HEAD: Patient has small left forehead hematoma. Shows some small abrasion adjacent, no raccoon/Baker sign. NECK: Nontender, painless range of motion, trachea midline Negative Nexus criteria, no midline line tenderness, distracting injury, altered mental status, neuro deficit, recent EtOH. EYES: PERRLA, EOMI ENT: External inspection normal, trachea is midline, TM's are normal no hemotypanum, Nares are clear, no septal hematoma, no dental or oral injury, airway is normal and with normal occlusion, No bony tenderness RESP: Chest is nontender and has symmetric movement, no ecchymosis, breath sounds are normal no crackles, wheezes or rales CVS: Heart sounds are normal, no murmur noted, No JVD. ABG/GI: Nontender, soft, normal bowel sounds, no distention, no organomegaly, pelvic rock is negative NEURO: Oriented AOx3, neuro is grossly intact, sensation and motor is normal all 4 extremities moving, cranial nerves II through XII are intact, GCS is 15 PSYCH: Normal mood and affect SKIN: Patient has some abrasions and small skin tears on her upper extremities, warm and dry, no crepitus and without decubitus BACK: No CVA tenderness, no vertebral tenderness, no step-off's, no crepitus EXT: Mild left shoulder pain over the AC. No deformity, no ecchymosis. Patient has quite a bit of pain over her left elbow rate is with the medial condyle, it was little bit of swallowing she does not wish to take it through range of motion. It is held at 90?. No bony tenderness of the wrist or hand, hips are nontender, no pedal edema, normal color and temperature, normal range of motion of right upper extremity and bilateral lower extremities. Neurovascularly intact in all 4 extremities. 2+ radial pulses. Initial Vital Signs Initial Vital Signs: Vital Signs Temperature 98.3 F 06/06/24 18:15 Pulse Rate 76 06/06/24 18:15 Respiratory Rate 16 06/06/24 18:15 Blood Pressure 141/83 H 06/06/24 18:15 Pulse Oximetry 98 06/06/24 18:15 Oxygen Delivery Method Room Air 06/06/24 18:15 Course Orders Ordered: Discontinued Medications Hydrocodone Bitart/Acetaminophen (Hydrocodone/Acet 5/325 Prepack) 1 bottle MISC DIRECTED ONE Stop: 06/06/24 20:43 Last Admin: 06/06/24 21:00 Dose: 1 bottle Documented By: AB Vital Signs Vital signs: Vital Signs - 8 hr 06/06/24 18:15 06/06/24 19:50 06/06/24 19:50 Temperature 98.3 F Pulse Rate 76 55 L Respiratory Rate 16 18 Blood Pressure 141/83 H 154/86 H Pulse Oximetry 98 97 Oxygen Delivery Method Room Air Room Air MDM - Fall MDM Narrative Medical decision making narrative: Left shoulder x-ray shows no acute fracture or dislocations. Knee x-ray on the left shows no acute bony abnormality or significant effusion. Left hip x-ray shows pelvis and left hip without acute fracture or dislocation stable postsurgical changes left proximal femur open reduction internal fixation without evidence of hardware complication. Left elbow x-ray abnormal anterior posterior elbow joint effusion without visible fracture given history of trauma occult fracture suspected recommended immobilization and repeat imaging in 10-14 days. 49-year-old female had a mechanical ground level fall. Does have a small hematoma on her forehead but no high-risk factors necessitating imaging at this time. Has a left shoulder pain no obvious fracture or dislocation could have potential tendon or ligament injury. Left elbow is quite tender there is some effusion concern for fracture. Patient was placed in posterior splint along with sling and plan for follow up with Orthopedic surgery. Patient has good range of motion of her knee and hip with no acute changes on imaging. Patient will also be provided short course of pain medication. Discussed return precautions. Patient placed in posterior long-arm splint by nursing. Neurovascularly intact pre and post. Discharge Plan Departure Patient Disposition: Home Clinical Impression: Effusion of left elbow Instructions: DI for Elbow Fracture Activity Restrictions/Additional Instructions: Follow up with Orthopedic surgery, you have an effusion on your elbow x-ray concerning for potential occult fracture. Please call Saturday to set up follow up. You can take acetaminophen up to a 1000 mg every 6 hours and/or ibuprofen up to 600 mg every 6 hours as needed for pain. If inadequate for pain you can take tramadol 1-2 tablets every 6 hours as needed. This medication can make you sleepy do not drive, perform hazardous activities or make any major decisions while taking it. This medication will make you constipated please take a stool softener once to twice daily until stools are soft and regular. Prescription sent to [facility] in [place]. Splint Care: Keep splint clean and dry. Elevated affected body part to decrease swelling. OK to use ice pack on the affected body part. Use for 15-20 minutes each time, for 5-6x per day. If you develop worsening pain, numbness, tingling, discoloration of the affected body part, loosen the splint by loosening the MARLO wrap, and either see your doctor for an urgent re-assessment, or return to the Emergency Department. Return to the Emergency Department for any new or worsening symptoms. Prescriptions: New tramadol 50 mg tablet 50 mg PO Q6H PRN (Reason: pain) Qty: 14 0RF No Action ParaGard T 380A 380 square mm intrauterine device intrauterine Referrals: Bobbi Foley MD [Physician] - Kyle Diaz ARNP [Primary Care Provider] - Stand Alone Forms: Patient Portal/API/Survey
[2024-06-06 20:30] VITALS: BP 146/93; PULSE 66; O2SAT 98
[2024-06-06 21:00] VITALS: BP 163/102; PULSE 70; RESP 18; O2SAT 99
[2024-06-06] MEDS: HYDROCODONE/ACET 5/325 PREPACK 1 BOTTLE MISC (21:00)
== END 2024-06-06 21:39 | disposition home or self-care (01) ==
PROVIDERS: Emergency Provider Emergency Medicine; PCP Registered Nurse Diabetes Educator
DX: M25.422 Effusion, left elbow (principal); S00.83XA Contusion of other part of head, initial encounter; Z96.642 Presence of left artificial hip joint; W18.30XA Fall on same level, unspecified, initial encounter
CPT/HCPCS: 29105; 73030; 73080; 73502; 73562; 99283; 99284

== ENCOUNTER 2024-12-09 08:10 | Emergency (ER) | payer OTHER, SELFPAY ==
[2024-12-09] VITALS (90 sets, daily range): BP systolic 78–160; BP diastolic 50–114; PULSE 73–133; RESP 10–67; TEMP 36.8–37.7; O2SAT 86–99; BMI 14.6
--- NOTE | 2024-12-09 08:26 | DI.RAD.S_ITS ---
PROCEDURE: XR CHEST 1V INDICATIONS: Chest Pain TECHNIQUE: One view of the chest was acquired. COMPARISON: None. FINDINGS: Surgical changes and devices: None. Lungs and pleura: Mild right mid and lower lung field opacities. No pleural effusions or pneumothorax. Mediastinum: Mediastinal contours appear normal. Heart size is normal. Bones and chest wall: No suspicious bony lesions. Overlying soft tissues appear unremarkable. IMPRESSION: Mild right mid and lower lung field opacities, may represent infection. Recommend follow-up imaging after treatment to ensure resolution. Dictated by: Abelardo Johnson M.D. on 12/09/2024 at 9:21 Approved by: Abelardo Johnson M.D. on 12/09/2024 at 9:23
--- NOTE | 2024-12-09 08:32 | EKG_ITS ---
[address] [address] Test Date: 2024-12-09 Pat Name: Juliette Moreno Department: Room: Gender: Female Magazine Writer: SUMANTH : 1975 Requested By: Order Number: [id number] Reading MD: Dustin Burnham Measurements Intervals [place] Rate: 92 P: 79 NC: 120 QRS: 73 QRSD: 90 T: 54 QT: 402 QTc: 497 Interpretive Statements Normal sinus rhythm Prolonged QT Electronically Signed On 12-09-2024 10:34:43 PDT by Dustin Burnham
--- NOTE | 2024-12-09 08:37 | ED_ITS ---
HPI - Chest Pain General Chief Complaint: Chest Pain Stated Complaint: Her heart is hurting , x 1 day Time Seen by Provider: 12/09/24 08:14 Source: patient Mode of arrival: Ambulatory Limitations: no limitations History of Present Illness HPI narrative: 49-year-old female smoker presents with right-sided chest pain his last night day p.m. described as sharp pain for which nothing makes it better or worse. She has not taken anything for this and has had no heart history or stress test done in the past. She did vomit a few times today. Patient denies any radiating symptoms of back pain, neck pain, arm pain, abdominal pain, leg pain, or leg swelling. Other than what is stated 14 point review of system is negative. Related Data Home Medications ?Medication ?Instructions ?Recorded ?Confirmed copper 380 square mm intrauterine intrauterine 1 09/27/20 device ([employer] T 380A) Previous Rx's ?Medication ?Instructions ?Recorded tramadol 50 mg tablet 50 mg PO Q6H PRN pain #14 ta bs 06/06/24 albuterol sulfate 90 mcg/actuation 1 inh inhalation Q4 -6H PRN 12/09/24 breath activated powder shortness of breath or wheez ing #1 inhaler,sensor ea amoxicillin 875 mg-potassium 1 tab PO Q12H #14 tabs clavulanate 125 mg tablet azithromycin 250 mg tablet 250 mg PO DAILY 4 days #4 t abs 12/09/24 Allergies Allergy/AdvReac Type Severity Reaction Status Date / Time No Known Drug Allergies Allergy Verified 12/09/24 08:32 Review of Systems Review of Systems ROS Unobtainable: All systems reviewed & are unremarkable except as noted in HPI and below Patient History Medical History Chicken pox Marijuana smoker Current smoker Excessive drinking of alcohol Surgical History Anesthesia History of surgery Status post loop electrosurgical excision procedure (LEEP) of cervix Status post hernia repair Family History Mother Seizures Grandmother Stroke Social History Smoking Status: Current every day smoker Tobacco: How many years used: 27 quit status: not considering quitting alcohol intake: current (2-24oz per day ) substance use type: marijuana (Daily ) Smoking Status: Current every day smoker tobacco type: cigarettes, e-cigarettes and vaping alcohol intake frequency: 3 or more drinks per day Alcohol type: beer, wine and hard liquor Exam Narrative Exam Narrative: GENERAL: [49] year old patient appears stated age. Well-developed patient, in mild distress. HEAD: Atraumatic. Normocephalic. EYES: Pupils equal round and reactive. Extraocular motions intact. No scleral icterus. No injection or drainage. ENT: Nose without bleeding, purulent drainage. Throat without erythema, tonsillar hypertrophy or exudate. Airway patent. NECK: Trachea midline. Non tender CARDIOVASCULAR: Regular rate and rhythm without murmurs, gallops, or rubs. RESPIRATORY: Coarse rhonchi bilateral GASTROINTESTINAL: Abdomen soft, non-tender, nondistended. EXTREMITIES: No edema or joint tenderness. BACK: Nontender without deformity or crepitance. No flank tenderness. NEURO: AOx3. SKIN: No rash or erythema of visible areas Initial Vital Signs Initial Vital Signs: Vital Signs Pulse Rate 103 H 12/09/24 08:29 Respiratory Rate 26 H 12/09/24 08:29 Pulse Oximetry 94 12/09/24 08:29 Scores HEART Score Heart Score history: Slightly Suspicious Heart Score EKG: Non-Specific repolarization disturbance Heart Score Age: 45-64 years old Heart Score risk factors: No known risk factors Heart Score troponin: < or = to normal limit Heart Score Total: 2 Course Orders Ordered: ED Orders 12/09/24 08:26 XR chest 1V Stat EKG-12 Lead Stat 12/09/24 08:39 Complete Blood Count AUTO DIFF Stat Comprehensive Metabolic Panel Stat Lactate (Lactic Acid) Stat Lipase Stat Magnesium Stat NT-proBNP (BNP-Adult 18+) Stat PTT Partial Thromboplastin Brigido Stat Prothrombin Time INR Stat Troponin & CK Cardiac Panel Stat 12/09/24 10:44 Lactate (Lactic Acid) Stat 12/09/24 10:45 Blood Culture Stat 12/09/24 11:09 Troponin I Stat Lactated Ringer's (Lactated Ringers) 1,000 mls @ 1,000 mls/hr IV BOLUS ONE Stop: 12/09/24 14:13 Last Admin: 12/09/24 13:24 Dose: 1,000 mls/hr Documented By: SB Nitroglycerin (Nitroglycerin 0.4 Mg Sl Tab) 0.4 mg SL [id number] PRN PRN Reason: Chest Pain Last Admin: 12/09/24 08:46 Dose: 0.4 mg Documented By: LAURI Discontinued Medications Aspirin (Aspirin 81 Mg Chew Tab) 324 mg PO NOW ONE Stop: 12/09/24 08:27 Last Admin: 12/09/24 08:44 Dose: 324 mg Documented By: LAURI Diphenhydramine HCl (Diphenhydramine 50 Mg/Ml Vial) 50 mg IV NOW ONE Stop: 12/09/24 12:00 Last Admin: 12/09/24 12:07 Dose: 50 mg Documented By: SGF Droperidol (Droperidol 2.5 Mg/Ml Vial) 2.5 mg IV NOW ONE Stop: 12/09/24 12:00 Last Admin: 12/09/24 12:07 Dose: 2.5 mg Documented By: LAURI Ceftriaxone Sodium 1,000 mg/ (Sodium Chloride) 100 mls @ 200 mls/hr IV NOW ONE Stop: 12/09/24 10:24 Last Infusion: 12/09/24 12:39 Dose: Infused Documented By: Admin: 12/09/24 11:48 Dose: 200 mls/hr Documented By: LAURI Azithromycin 500 mg/ Dextrose 250 mls @ 250 mls/hr IV NOW ONE Stop: 12/09/24 10:24 Last Infusion: 12/09/24 11:47 Dose: Infused Documented By: Admin: 12/09/24 10:33 Dose: 250 mls/hr Documented By: LAURI Lactated Ringer's (Lactated Ringers) 1,000 mls @ 1,000 mls/hr IV BOLUS ONE Stop: 12/09/24 11:46 Last Infusion: 12/09/24 11:47 Dose: Infused Documented By: Admin: 12/09/24 10:52 Dose: 1,000 mls/hr Documented By: LAURI Lactated Ringer's (Lactated Ringers) 1,000 mls @ 1,000 mls/hr IV BOLUS ONE Stop: 12/09/24 12:37 Last Infusion: 12/09/24 13:23 Dose: Infused Documented By: Admin: 12/09/24 11:51 Dose: 1,000 mls/hr Documented By: LAURI Morphine Sulfate (Morphine 4 Mg/Ml Inj) 4 mg IV NOW ONE Stop: 12/09/24 09:06 Last Admin: 12/09/24 09:07 Dose: 4 mg Documented By: LAURI Morphine Sulfate (Morphine 4 Mg/Ml Inj) 4 mg IV NOW ONE Stop: 12/09/24 10:51 Last Admin: 12/09/24 10:54 Dose: 4 mg Documented By: LAURI Ondansetron HCl (Ondansetron 4 Mg/2 Ml Inj) 4 mg IV NOW ONE Stop: 12/09/24 10:51 Last Admin: 12/09/24 10:53 Dose: 4 mg Documented By: LAURI Vital Signs Vital signs: Vital Signs - 8 hr 12/09/24 08:29 12/09/24 08:30 12/09/24 08:30 Temperature Pulse Rate 103 H 101 H Respiratory Rate 26 H 26 H Blood Pressure 142/83 H Pulse Oximetry 94 98 Oxygen Delivery Method 12/09/24 08:31 12/09/24 08:46 12/09/24 08:47 Temperature 98.3 F Pulse Rate 98 H 95 H Respiratory Rate 20 Blood Pressure 142/83 H 141/91 H 141/91 H Pulse Oximetry 98 Oxygen Delivery Method Room Air 12/09/24 08:47 12/09/24 08:50 12/09/24 08:50 Temperature Pulse Rate 99 H 103 H Respiratory Rate 29 H 38 H Blood Pressure 133/85 Pulse Oximetry 97 96 Oxygen Delivery Method 12/09/24 08:55 12/09/24 08:55 12/09/24 09:00 Temperature Pulse Rate 122 H Respiratory Rate 20 Blood Pressure 105/65 104/68 Pulse Oximetry 94 Oxygen Delivery Method 12/09/24 09:00 12/09/24 09:05 12/09/24 09:05 Temperature Pulse Rate 99 H 93 H Respiratory Rate 29 H 19 Blood Pressure 109/73 Pulse Oximetry 95 95 Oxygen Delivery Method 12/09/24 09:10 12/09/24 09:10 12/09/24 09:15 Temperature Pulse Rate 103 H Respiratory Rate 26 H Blood Pressure 137/74 107/66 Pulse Oximetry 95 Oxygen Delivery Method 12/09/24 09:15 12/09/24 09:20 12/09/24 09:20 Temperature Pulse Rate 94 H 94 H Respiratory Rate 18 17 Blood Pressure 106/68 Pulse Oximetry 89 L 88 L Oxygen Delivery Method 12/09/24 09:25 12/09/24 09:25 12/09/24 09:30 Temperature Pulse Rate 97 H 125 H Respiratory Rate 18 31 H Blood Pressure 107/64 Pulse Oximetry 86 L 96 Oxygen Delivery Method 12/09/24 09:31 12/09/24 09:31 12/09/24 09:35 Temperature Pulse Rate 105 H 96 H Respiratory Rate 33 H 35 H Blood Pressure 129/83 Pulse Oximetry 95 97 Oxygen Delivery Method 12/09/24 09:35 12/09/24 09:40 12/09/24 09:40 Temperature Pulse Rate 94 H Respiratory Rate 18 Blood Pressure 145/83 H 126/65 Pulse Oximetry 93 Oxygen Delivery Method 12/09/24 09:46 12/09/24 09:46 12/09/24 09:51 Temperature Pulse Rate 97 H Respiratory Rate 43 H Blood Pressure 145/77 H 119/66 Pulse Oximetry 96 Oxygen Delivery Method 12/09/24 09:51 12/09/24 09:55 12/09/24 09:55 Temperature Pulse Rate 79 81 Respiratory Rate 18 17 Blood Pressure 118/67 Pulse Oximetry 90 L 89 L Oxygen Delivery Method 12/09/24 10:00 12/09/24 10:00 12/09/24 10:05 Temperature Pulse Rate 81 80 Respiratory Rate 17 16 Blood Pressure 116/71 Pulse Oximetry 90 L 89 L Oxygen Delivery Method 12/09/24 10:05 12/09/24 10:10 12/09/24 10:10 Temperature Pulse Rate 82 Respiratory Rate 16 Blood Pressure 112/71 111/70 Pulse Oximetry 88 L Oxygen Delivery Method 12/09/24 10:15 12/09/24 10:15 12/09/24 10:20 Temperature Pulse Rate 81 Respiratory Rate 14 Blood Pressure 119/71 111/67 Pulse Oximetry 90 L Oxygen Delivery Method 12/09/24 10:20 12/09/24 10:25 12/09/24 10:25 Temperature Pulse Rate 81 82 Respiratory Rate 16 14 Blood Pressure 110/70 Pulse Oximetry 89 L 91 Oxygen Delivery Method 12/09/24 10:30 12/09/24 10:30 12/09/24 10:35 Temperature Pulse Rate 80 96 H Respiratory Rate 15 24 Blood Pressure 114/69 Pulse Oximetry 89 L 95 Oxygen Delivery Method 12/09/24 10:35 12/09/24 10:40 12/09/24 10:40 Temperature Pulse Rate 84 Respiratory Rate 34 H Blood Pressure 117/75 131/81 Pulse Oximetry 98 Oxygen Delivery Method 12/09/24 10:45 12/09/24 10:45 12/09/24 10:50 Temperature Pulse Rate 133 H Respiratory Rate 37 H Blood Pressure 147/89 H 142/93 H Pulse Oximetry 97 Oxygen Delivery Method 12/09/24 10:50 12/09/24 10:55 12/09/24 10:55 Temperature Pulse Rate 92 H 86 Respiratory Rate 33 H 29 H Blood Pressure 130/79 Pulse Oximetry 98 99 Oxygen Delivery Method 12/09/24 11:00 12/09/24 11:00 12/09/24 11:05 Temperature Pulse Rate 78 Respiratory Rate 21 Blood Pressure 112/69 99/58 L Pulse Oximetry 94 Oxygen Delivery Method 12/09/24 11:05 12/09/24 11:10 12/09/24 11:10 Temperature Pulse Rate 81 79 Respiratory Rate 25 H 36 H Blood Pressure 92/55 L Pulse Oximetry 90 L 92 Oxygen Delivery Method 12/09/24 11:15 12/09/24 11:15 12/09/24 11:20 Temperature Pulse Rate 82 Respiratory Rate 44 H Blood Pressure 88/55 L 96/57 L Pulse Oximetry 92 Oxygen Delivery Method 12/09/24 11:20 12/09/24 11:25 12/09/24 11:25 Temperature Pulse Rate 80 79 Respiratory Rate 50 H 67 H Blood Pressure 86/50 L Pulse Oximetry 97 95 Oxygen Delivery Method 12/09/24 11:30 12/09/24 11:30 12/09/24 11:33 Temperature Pulse Rate 81 92 H Respiratory Rate 65 H 38 H Blood Pressure 91/50 L Pulse Oximetry 92 91 Oxygen Delivery Method 12/09/24 11:33 12/09/24 11:35 12/09/24 11:35 Temperature Pulse Rate 84 Respiratory Rate 22 Blood Pressure 100/59 L 85/53 L Pulse Oximetry 92 Oxygen Delivery Method 12/09/24 11:40 12/09/24 11:40 12/09/24 11:45 Temperature Pulse Rate 84 Respiratory Rate 18 Blood Pressure 81/53 L 78/52 L Pulse Oximetry 94 Oxygen Delivery Method 12/09/24 11:45 12/09/24 11:51 12/09/24 11:51 Temperature Pulse Rate 85 90 Respiratory Rate 14 27 H Blood Pressure 119/80 Pulse Oximetry 90 L 97 Oxygen Delivery Method 12/09/24 12:06 12/09/24 12:06 12/09/24 12:10 Temperature Pulse Rate 101 H 100 H Respiratory Rate 28 H Blood Pressure 121/81 Pulse Oximetry 92 95 Oxygen Delivery Method 12/09/24 12:10 12/09/24 12:15 12/09/24 12:15 Temperature Pulse Rate 106 H Respiratory Rate 34 H Blood Pressure 119/84 131/91 H Pulse Oximetry 98 Oxygen Delivery Method 12/09/24 12:20 12/09/24 12:20 12/09/24 12:25 Temperature Pulse Rate 83 Respiratory Rate 10 L Blood Pressure 141/72 H 130/71 Pulse Oximetry 96 Oxygen Delivery Method 12/09/24 12:25 12/09/24 12:30 12/09/24 12:30 Temperature Pulse Rate 82 Respiratory Rate 13 Blood Pressure 141/85 H Pulse Oximetry 97 Oxygen Delivery Method 12/09/24 12:35 12/09/24 12:35 12/09/24 12:40 Temperature Pulse Rate 73 Respiratory Rate 12 Blood Pressure 127/72 119/70 Pulse Oximetry 97 Oxygen Delivery Method 12/09/24 12:40 12/09/24 12:45 12/09/24 12:45 Temperature Pulse Rate 74 83 Respiratory Rate 14 17 Blood Pressure 116/70 Pulse Oximetry 96 95 Oxygen Delivery Method 12/09/24 12:50 12/09/24 12:50 12/09/24 12:55 Temperature Pulse Rate 77 Respiratory Rate 14 Blood Pressure 141/65 H 124/61 Pulse Oximetry 96 Oxygen Delivery Method 12/09/24 12:55 12/09/24 13:00 12/09/24 13:00 Temperature Pulse Rate 77 75 Respiratory Rate 18 19 Blood Pressure 126/69 Pulse Oximetry 97 95 Oxygen Delivery Method 12/09/24 13:05 12/09/24 13:05 12/09/24 13:10 Temperature Pulse Rate 81 80 Respiratory Rate 14 16 Blood Pressure 115/73 Pulse Oximetry 93 92 Oxygen Delivery Method 12/09/24 13:10 12/09/24 13:15 12/09/24 13:15 Temperature Pulse Rate 124 H Respiratory Rate 22 Blood Pressure 114/71 142/99 H Pulse Oximetry 89 L Oxygen Delivery Method 12/09/24 13:20 12/09/24 13:20 Temperature Pulse Rate 79 Respiratory Rate 14 Blood Pressure 124/74 Pulse Oximetry 91 Oxygen Delivery Method MDM - Chest Pain Lab Data 12/09/24 08:39 12/09/24 08:39 Labs: Lab Results 12/09/24 12/09/24 12/09/24 Range/Units 08:39 10:44 11:09 WBC 15.1 H (4.5-11.0) X10^3/uL RBC 3.57 L (4.0-5.2) X10^6/uL Hgb 13.3 (12.0-16.0) g/dL Hct 39.5 (36-46) % MCV 110.5 H (80-100) fL MCH 37.2 H (26-34) PG MCHC 33.7 (30-36) % RDW 13.9 (11.6-14.8) % Plt Count 266 (150-400) X10^3/uL Neut % (Auto) 78.8 H (50-75) % Lymph % (Auto) 10.7 L (25-40) % [place] % (Auto) 9.2 (3-14) % Eos % (Auto) 0.1 L (2-4) % Baso % (Auto) 1.2 (0-2) % Neut # (Auto) 31113 H (3606-6919) /uL Lymph # (Auto) 1600 (3398-6892) /uL [place] # (Auto) 1400 H (0-900) /uL Eos # (Auto) 0 (0-450) /uL Baso # (Auto) 200 H (0-100) /uL RBC Morphology See below Macrocytosis 2+ H PT 11.1 (9.4-12.5) SECONDS INR 1.0 (0.9-1.3) APTT 31 (25.1-36.5) SECONDS Sodium 137 (137-145) mmol/L Potassium 3.7 (3.4-5.1) mmol/L Chloride 99 (98-107) mmol/L Carbon Dioxide 17 L (22-32) mmol/L BUN 6 L (7-17) mg/dL Creatinine 0.56 (0.52-1.04) mg/dL Estimated GFR > 60 (>60) mL/min BUN/Creatinine Ratio 10.7 (6-22) Glucose 88 (70-99) mg/dL Lactate 4.1 H* 2.8 H (0.7-2.1) mmol/L Calcium 8.1 L (8.4-10.2) mg/dL Magnesium 1.4 L (1.6-2.3) mg/dL Total Bilirubin 0.8 (0.2-1.3) mg/dL AST 39 H (14-36) IU/L ALT 16 (<35) IU/L Alkaline Phosphatase 121 (38-126) U/L Total Creatine Kinase 29 L (30-135) U/L Troponin I < 0.012 < 0.012 (0.01-0.034) ng/mL NT-Pro-B Natriuret Pep 54 (<125) pg/mL Total Protein 7.6 (6.3-8.2) g/dL Albumin 3.9 (3.5-5.0) g/dL Globulin 3.7 (1.7-4.1) g/dL Albumin/Globulin Ratio 1.1 (1.0-2.8) Lipase 72 (23-300) U/L 12/09/24 Range/Units 12:32 WBC (4.5-11.0) X10^3/uL RBC (4.0-5.2) X10^6/uL Hgb (12.0-16.0) g/dL Hct (36-46) % MCV (80-100) fL MCH (26-34) PG MCHC (30-36) % RDW (11.6-14.8) % Plt Count (150-400) X10^3/uL Neut % (Auto) (50-75) % Lymph % (Auto) (25-40) % [place] % (Auto) (3-14) % Eos % (Auto) (2-4) % Baso % (Auto) (0-2) % Neut # (Auto) (6436-2703) /uL Lymph # (Auto) (2195-6359) /uL [place] # (Auto) (0-900) /uL Eos # (Auto) (0-450) /uL Baso # (Auto) (0-100) /uL RBC Morphology Macrocytosis PT (9.4-12.5) SECONDS INR (0.9-1.3) APTT (25.1-36.5) SECONDS Sodium (137-145) mmol/L Potassium (3.4-5.1) mmol/L Chloride (98-107) mmol/L Carbon Dioxide (22-32) mmol/L BUN (7-17) mg/dL Creatinine (0.52-1.04) mg/dL Estimated GFR (>60) mL/min BUN/Creatinine Ratio (6-22) Glucose (70-99) mg/dL Lactate 4.2 H* (0.7-2.1) mmol/L Calcium (8.4-10.2) mg/dL Magnesium (1.6-2.3) mg/dL Total Bilirubin (0.2-1.3) mg/dL AST (14-36) IU/L ALT (<35) IU/L Alkaline Phosphatase (38-126) U/L Total Creatine Kinase (30-135) U/L Troponin I (0.01-0.034) ng/mL NT-Pro-B Natriuret Pep (<125) pg/mL Total Protein (6.3-8.2) g/dL Albumin (3.5-5.0) g/dL Globulin (1.7-4.1) g/dL Albumin/Globulin Ratio (1.0-2.8) Lipase (23-300) U/L Imaging Data Chest x-ray: Radiologist's Impression: [address] [address] XRay Report Signed Patient: Juliette Moreno MR#: [id number] : 1975 Acct:[id number] Age/Sex: 49 / F Date of Service: 12/09/24 Loc: ED Accession Number: [id number] Procedure: XR chest 1V Ordering Provider: Tim Negron D.O. PROCEDURE: XR CHEST 1V INDICATIONS: Chest Pain TECHNIQUE: One view of the chest was acquired. COMPARISON: None. FINDINGS: Surgical changes and devices: None. Lungs and pleura: Mild right mid and lower lung field opacities. No pleural effusions or pneumothorax. Mediastinum: Mediastinal contours appear normal. Heart size is normal. Bones and chest wall: No suspicious bony lesions. Overlying soft tissues appear unremarkable. IMPRESSION: Mild right mid and lower lung field opacities, may represent infection. Recommend follow-up imaging after treatment to ensure resolution. CT scan - abdomen/pelvis: Radiologist's Impression: [address] [address] [address] Scan Report Signed Patient: Juliette Moreno MR#: [id number] : 1975 Acct:[id number] Age/Sex: 49 / F Date of Service: 12/09/24 Loc: ED Accession Number: [id number] Procedure: CT abdomen pelvis w con Ordering Provider: Tim Negron D.O. PROCEDURE: CT ABDOMEN PELVIS W CON INDICATIONS: abd pain TECHNIQUE: After the administration of intravenous contrast, axial sections acquired from the lung bases to the pubic symphysis. Coronal and sagittal reformats were performed. For radiation dose reduction, the following was used: automated exposure control, adjustment of mA and/or kV according to patient size. COMPARISON: [facility], CT, CT ABDOMEN PELVIS W CON, 03/15/2022, 22:53., CT chest PE 12/09/2024 FINDINGS: Image quality: Diagnostic. Lower Chest: Please see separately dictated CT chest PE obtained concurrently 12/09/2024. ABDOMEN: Liver: No solid mass. Hepatic steatosis. Gallbladder: No radiopaque gallstones or wall thickening. Biliary ducts: No biliary dilation. Pancreas: No ductal dilation. Spleen: Size is within normal limits. Adrenal Glands: No adrenal nodules. Kidneys and Ureters: No hydronephrosis. No solid mass. No complex renal cystic lesion which requires follow up. Stomach and Bowel: Normal colonic caliber, without significant wall thickening. Scattered colonic diverticula without acute inflammation Peritoneum: No abnormal intraperitoneal fluid. No free air. Ventral Wall: No significant ventral hernia. Abdominal Nodes: No retroperitoneal or mesenteric adenopathy by size criteria. Vessels: Aorta and inferior vena cava are normal in size. Mild aorto bi iliac atherosclerotic calcifications. PELVIS: Pelvic Organs: IUD is in place.. Bladder: No bladder wall thickening, accounting for underdistention. Pelvic Nodes: No enlarged lymph nodes. Miscellaneous: No inguinal hernias are seen. Bones: No aggressive osseous abnormality. Status post proximal left femoral internal fixation. IMPRESSION: Hepatic steatosis. Colonic diverticulosis without CT evidence of acute diverticulitis. Additional findings as above. CT scan - chest: Radiologist's Impression: [address] [place] [address] CT Scan Report Signed Patient: Juliette Moreno MR#: [id number] : 1975 Acct:[id number] Age/Sex: 49 / F Date of Service: 12/09/24 Loc: ED Accession Number: [id number] Procedure: CT angio chest PE protocol Ordering Provider: Tim Negron D.O. PROCEDURE: CT ANGIO CHEST PE PROTOCOL INDICATIONS: abd pain TECHNIQUE: After the administration of intravenous contrast, 2 mm thick sections acquired from the pulmonary apices to the posterior costophrenic angles. 3-dimensional maximum intensity projection (MIP) coronal and sagittal reformats were then acquired through the thorax. For radiation dose reduction, the following was used: automated exposure control, adjustment of mA and/or kV according to patient size. COMPARISON: None. FINDINGS: Image quality: Diagnostic. Pulmonary arteries: Pulmonary arteries are normal in size, and demonstrate no intraluminal filling defects to suggest central pulmonary embolism. Lower Neck: No enlarged lymph nodes. Thyroid: No thyroid nodules which require sonographic follow up, per consensus guidelines. Axillae: No enlarged lymph nodes. Chest Wall: Unremarkable. Bones: Unremarkable. Lungs and Pleura: No pneumothorax or pleural effusions. Multifocal areas of consolidation in the right upper and lower lobes concerning for multifocal pneumonia. Heart: Heart size is normal. No pericardial effusion. Thoracic Vessels: No aortic aneurysm. Mediastinum and Preethi: No enlarged lymph nodes. Esophagus: No wall thickening. No hiatal hernia. Upper Abdomen: Visualized upper abdomen solid organs and bowel loops appear normal. IMPRESSION: No pulmonary embolus. Multifocal right pneumonia. ECG Data Interpretation: NSR HR 92 NJ 120 QRS 90 QT 402 MDM Narrative Medical decision making narrative: . All lab work, vital signs, nurse triage note, medication list, previous ER visits, and all imaging studies reviewed. WBC 15.1 hemoglobin 13.3 platelet 266 INR 1 sodium 137 potassium 3.7 BUN 6 creatinine 0.56 initial lactic acid 4.1. 2 sets troponin normal. Chest x-ray showed mild right mid and lower lung field opacities may represent infection. Patient given Rocephin Zithromax fluids Zofran droperidol Benadryl aspirin and nitro. Heart score 2. Patient was offered admission but she declined and would like to go home. Differential diagnosis STEMI NSTEMI unstable angina GERD anxiety COPD pneumonia sepsis. DC home on Augmentin, Zithromax, prednisone, albuterol. Lactic acid 4.1 and then went down to 2.8 and then went back up to 4.2. Despite fluid resuscitation x 4L bolus patient does not want to stay. Patient was of sound mind and judgment when she made the decision to leave against medical advice. Discharge Plan Departure Patient Disposition: Home Clinical Impression: Left against medical advice Chest pain Qualifiers: Chest pain type: chest pain on breathing Qualified Code(s): R07.1 - Chest pain on breathing Pneumonia Qualifiers: Pneumonia type: due to Pneumococcus Laterality: bilateral Lung location: lower lobe of lung Qualified Code(s): J13 - Pneumonia due to Streptococcus pneumoniae Instructions: DI for Pneumonia -- Adult Activity Restrictions/Additional Instructions: Return with new or worsening symptoms. Take your medicines as directed. Follow up PCP in 1-2 days for reassessment. Prescriptions: New amoxicillin-pot clavulanate 875-125 mg tablet 1 tab PO Q12H Qty: 14 0RF azithromycin 250 mg tablet 250 mg PO DAILY 4 Days Qty: 4 0RF Rx Instructions: start on day 2 of therapy albuterol sulfate 90 mcg/actuation aero powdr breath act w/sensor 1 inh inhalation Q4-6H PRN (Reason: shortness of breath or wheezing) Qty: 1 0RF No Action ParaGard T 380A 380 square mm intrauterine device intrauterine tramadol 50 mg tablet 50 mg PO Q6H PRN (Reason: pain) Qty: 14 0RF Stand Alone Forms: Patient Portal/API
[2024-12-09] MEDS: ASPIRIN 81 MG CHEW TAB 324 MG PO (08:44)
[2024-12-09] MEDS: NITROGLYCERIN 0.4 MG SL TAB SL (08:46)
[2024-12-09 08:49] LABS: Add Manual Diff / Slide Review NO; Hematocrit 39.5 % (36-46); Hemoglobin 13.3 g/dL (12.0-16.0); Lymphocytes Absolute Auto 1600 /uL (1100-4500); Mean Corpuscular HGB Conc 33.7 % (30-36); Mean Corpuscular Hemoglobin 37.2 PG (26-34); Mean Corpuscular Volume 110.5 fL (80-100); Platelet Count 266 X10^3/uL (150-400)
[2024-12-09 08:59] LABS: INR 1.0 (0.9-1.3); Prothrombin Time 11.1 SECONDS (9.4-12.5)
[2024-12-09 09:02] LABS: PTT Partial Thromboplastin Tim 31 SECONDS (25.1-36.5)
[2024-12-09 09:03] LABS: Macrocytosis 2+
[2024-12-09 09:04] LABS: Alanine Aminotransferase 16 IU/L (<35); Albumin 3.9 g/dL (3.5-5.0); Albumin Globulin Ratio 1.1 (1.0-2.8); Alkaline Phosphatase 121 U/L (38-126); Blood Urea Nitrogen 6 mg/dL (7-17); Calcium 8.1 mg/dL (8.4-10.2); Carbon Dioxide 17 mmol/L (22-32); Chloride 99 mmol/L (98-107); Creatine Kinase 29 U/L (30-135); Estimated Glomerular Filt Rate > 60 mL/min (>60); Globulin 3.7 g/dL (1.7-4.1); Glucose 88 mg/dL (70-99); HEMOLYSIS < 15 (0-50); Lipase 72 U/L (23-300); Magnesium 1.4 mg/dL (1.6-2.3); Potassium 3.7 mmol/L (3.4-5.1); Sodium 137 mmol/L (137-145); Total Protein 7.6 g/dL (6.3-8.2)
[2024-12-09] MEDS: MORPHINE 4 MG/ML INJ IV ×2 (09:07→10:54)
[2024-12-09 09:15] LABS: NT-proBNP (BNP-Adult 18+) 54 pg/mL (<125); Troponin I < 0.012 ng/mL (0.01-0.034)
[2024-12-09] MEDS: AZITHROMYCIN 500 MG in DEXTROSE 5% IN WATER 250 ML 250 MG IV (10:33)
[2024-12-09 10:39] LABS: Lactate (Lactic Acid) 4.1 mmol/L (0.7-2.1)
[2024-12-09] MEDS: LACTATED RINGERS 1,000 ML 1000 ML IV ×4 (10:52→14:53)
[2024-12-09] MEDS: ONDANSETRON 4 MG/2 ML INJ IV (10:53)
[2024-12-09 11:03] LABS: Lactate (Lactic Acid) 2.8 mmol/L (0.7-2.1)
[2024-12-09 11:43] LABS: Troponin I < 0.012 ng/mL (0.01-0.034)
[2024-12-09 12:03] LABS: Reflexed Lactate in 2 Hours Y
[2024-12-09] MEDS: diphenhydrAMINE 50 MG/ML VIAL IV (12:07)
[2024-12-09] MEDS: droPERidol 2.5 MG/ML VIAL IV (12:07)
[2024-12-09 12:23] LABS: Reflexed Lactate in 2 Hours Y
[2024-12-09 12:55] LABS: Lactate 2HR (Lactic Acid Rflx) 4.2 mmol/L (0.7-2.1)
[2024-12-09 14:52] LABS: Lactate (Lactic Acid) 5.1 mmol/L (0.7-2.1)
--- NOTE | 2024-12-09 15:23 | DI.CT.S_ITS ---
PROCEDURE: CT ANGIO CHEST PE PROTOCOL INDICATIONS: abd pain TECHNIQUE: After the administration of intravenous contrast, 2 mm thick sections acquired from the pulmonary apices to the posterior costophrenic angles. 3-dimensional maximum intensity projection (MIP) coronal and sagittal reformats were then acquired through the thorax. For radiation dose reduction, the following was used: automated exposure control, adjustment of mA and/or kV according to patient size. COMPARISON: None. FINDINGS: Image quality: Diagnostic. Pulmonary arteries: Pulmonary arteries are normal in size, and demonstrate no intraluminal filling defects to suggest central pulmonary embolism. Lower Neck: No enlarged lymph nodes. Thyroid: No thyroid nodules which require sonographic follow up, per consensus guidelines. Axillae: No enlarged lymph nodes. Chest Wall: Unremarkable. Bones: Unremarkable. Lungs and Pleura: No pneumothorax or pleural effusions. Multifocal areas of consolidation in the right upper and lower lobes concerning for multifocal pneumonia. Heart: Heart size is normal. No pericardial effusion. Thoracic Vessels: No aortic aneurysm. Mediastinum and Preethi: No enlarged lymph nodes. Esophagus: No wall thickening. No hiatal hernia. Upper Abdomen: Visualized upper abdomen solid organs and bowel loops appear normal. IMPRESSION: No pulmonary embolus. Multifocal right pneumonia. Approved by: Kenisha Martin M.D.,Ph.D. on 12/09/2024 at 16:37
--- NOTE | 2024-12-09 15:23 | DI.CT.S_ITS ---
PROCEDURE: CT ABDOMEN PELVIS W CON INDICATIONS: abd pain TECHNIQUE: After the administration of intravenous contrast, axial sections acquired from the lung bases to the pubic symphysis. Coronal and sagittal reformats were performed. For radiation dose reduction, the following was used: automated exposure control, adjustment of mA and/or kV according to patient size. COMPARISON: Located Within [facility], CT, CT ABDOMEN PELVIS W CON, 03/15/2022, 22:53., CT chest PE 12/09/2024 FINDINGS: Image quality: Diagnostic. Lower Chest: Please see separately dictated CT chest PE obtained concurrently 12/09/2024. ABDOMEN: Liver: No solid mass. Hepatic steatosis. Gallbladder: No radiopaque gallstones or wall thickening. Biliary ducts: No biliary dilation. Pancreas: No ductal dilation. Spleen: Size is within normal limits. Adrenal Glands: No adrenal nodules. Kidneys and Ureters: No hydronephrosis. No solid mass. No complex renal cystic lesion which requires follow up. Stomach and Bowel: Normal colonic caliber, without significant wall thickening. Scattered colonic diverticula without acute inflammation Peritoneum: No abnormal intraperitoneal fluid. No free air. Ventral Wall: No significant ventral hernia. Abdominal Nodes: No retroperitoneal or mesenteric adenopathy by size criteria. Vessels: Aorta and inferior vena cava are normal in size. Mild aorto bi iliac atherosclerotic calcifications. PELVIS: Pelvic Organs: IUD is in place.. Bladder: No bladder wall thickening, accounting for underdistention. Pelvic Nodes: No enlarged lymph nodes. Miscellaneous: No inguinal hernias are seen. Bones: No aggressive osseous abnormality. Status post proximal left femoral internal fixation. IMPRESSION: Hepatic steatosis. Colonic diverticulosis without CT evidence of acute diverticulitis. Additional findings as above. Approved by: Kenisha Martin M.D.,Ph.D. on 12/09/2024 at 16:43
[2024-12-09 15:29] LABS: Base Excess VBG 1.8 mmol/L (0-4); HCO3 VBG 25 mmol/L (24-28); Oxygen Saturation VBG 80 % (70-75); PCO2 VBG 34.3 mmHg (45-50); PO2 VBG 41 mmHg (35-45); Total CO2 VBG 24 mmol/L (24-29); pH VBG 7.47 (7.33-7.43)
[2024-12-09 16:03] LABS: Reflexed Lactate in 2 Hours Y
[2024-12-09 16:41] LABS: Lactate 2HR (Lactic Acid Rflx) 5.2 mmol/L (0.7-2.1)
--- NOTE | 2024-12-09 17:15 | PC.NURSE ---
Pt wanted to leave against medical advise. Asked to stay and informed of what possibilities there are if she leaves AMA. Pt stated she just wanted to go home. Provider aware
== END 2024-12-09 17:16 | disposition home or self-care (01) ==
PROVIDERS: Emergency Provider Family Medicine
DX: J13 Pneumonia due to Streptococcus pneumoniae (principal); R07.1 Chest pain on breathing
CPT/HCPCS: 36415; 71045; 71275; 74177; 80053; 82550; 82805; 83605; 83690; 83735; 83880; 84484; 85025; 85610; 85730; 87040; 93005; 96361; 96365; 96367; 96375; 96376; 99284; 99285; J0696; J1200; J1790; J2272; J2405; J7050; J7060; J7120; Q9967